=== PATIENT | male | born 1930 | race Caucasian/White ===

== ENCOUNTER 2017-05-09 12:09 | Emergency (ER) | payer OTHER, BC ==
[~2017-05-09] VITALS: Ht 172.7 cm; Wt 89.4 kg
[~2017-05-09 12:09] MED LIST: ASPIR 8181 MG PO; ASPIRIN325 PO; ASTEPRO NASAL SPRAY NASAL; AVODART0.5 MG PO; AZITHROMYCIN 2250 MG PO; CIPRO250 M1 PO; COLACE100 MG PO; DUONEB 2.5-0.5 M3 ML IH; DUONEB 2.5-0.5 M3 ML INH; FLOMAX PO; FLOMAX0.4 MG PO; HYDROCODON-ACE1 EAC7 PO; LIPITOR 20 MG T20 M1 PO; LOPRESSOR25 PO; NITROGLYCERIN0.4 MG SUBLING; NITROSTAT0.4 MG SUBLING; NYSTATIN-TRIAMC15 GM; NYSTATIN1 EA10 MC; PEPCID20 MG PO; PLAVIX 75 MG TA75 M1 PO; PRAVACHOL20 MG PO; PREDNISONE 10 M10 MG PO; PREDNISONE 5 MG5 M1 PO; PROAIR HFA8.5 GM INH; PROTONIX40 M1 PO; SIMVASTATIN40 MG PO; SINGULAIR 10 MG10 M1 PO; SYMBICORT160 MCG/4. INH; TAMSULOSIN HCL0.4 MG PO; TOPROL XL25 MG PO; VITAMIN D2000 UNIT PO
[2017-05-09] MEDS ORDERED: SIMVASTATIN40 MG PO (12:16)
[2017-05-09] MEDS ORDERED: MIDODRINE HCL 55 M1 PO (12:17)
[2017-05-09 13:11] LABS: ABSOLUTE NEUTROPHILS 4.7 thou/uL (1.4-8.2); EOSINOPHILS 7.5 % (0.0-3.0); HEMATOCRIT 34.1 % (42.0-52.0); HEMOGLOBIN 11.6 gm/dL (14.0-18.0); LYMPHOCYTES 13.8 % (24.0-44.0); MCH 31.2 pg (26.0-34.0); MCHC 34.1 g/dL (28.0-37.0); MCV 91.6 fL (80.0-100.0); MONOCYTES 8.3 % (1.0-8.0); PLATELET COUNT 204 thou/uL (150-400); POLYS 69.4 % (36.0-66.0); RBC 3.73 mil/uL (4.50-6.00); RDW 14.4 % (10.5-14.5); WBC 6.7 thou/uL (4.0-11.0)
[2017-05-09 13:18] LABS: CALCIUM 8.9 mg/dL (8.5-10.1); CREATININE 2.2 mg/dL (0.7-1.3); POTASSIUM 4.6 mmol/L (3.5-5.1)
[2017-05-09 13:24] LABS: ALBUMIN 3.2 g/dL (3.4-5.0); TOTAL BILIRUBIN 0.5 mg/dL (<0.1-1.0); TOTAL PROTEIN 6.3 g/dL (6.4-8.2)
[2017-05-09 13:30] VITALS: BP 100/66
[2017-05-09] MEDS ORDERED: ACETAMINOPHEN-1 EAC1 PO (16:10)
[2018-03-05] MEDS ORDERED: IBUPROFEN 200200 M1 PO (13:48)
[2018-03-05] MEDS ORDERED: FOLBIC RF TABL1 EACH PO (13:49)
[2018-03-05] MEDS ORDERED: PREDNISONE 10 M10 MG PO (13:49)
[2018-03-05] MEDS ORDERED: DURAGESIC1 EACH TRANSDERM (14:15)
== END 2017-05-09 16:31 | disposition home or self-care (01) ==
LOC: ER 12:09
PROVIDERS: Physician Assistant
DX: S01.01XA Laceration without foreign body of scalp, initial encounter (principal); S39.011A Strain of muscle, fascia and tendon of abdomen, initial encounter; I10 Essential (primary) hypertension; J44.9 Chronic obstructive pulmonary disease, unspecified; Z90.49 Acquired absence of other specified parts of digestive tract; Z90.89 Acquired absence of other organs; Z87.891 Personal history of nicotine dependence; W18.39XA Other fall on same level, initial encounter; Y93.89 Activity, other specified; Y92.092 Bedroom in other non-institutional residence as the place of occurrence of the external cause; Y99.8 Other external cause status

== ENCOUNTER → 2017-08-21 | Outpatient (CLI) | payer OTHER, BC ==
[~2017-08-21] MED LIST changes: +ACETAMINOPHEN-1 EAC1 PO; +MIDODRINE HCL 55 M1 PO
== END ==
LOC: RAD 12:48
DX: M77.8 Other enthesopathies, not elsewhere classified (principal); I25.10 Atherosclerotic heart disease of native coronary artery without angina pectoris; Z91.81 History of falling

== ENCOUNTER → 2017-09-25 | Outpatient (CLI) | payer OTHER, BC ==
--- NOTE | ~2017-09-25 | 2DMMODE ---
[facility] [address] [place] [address] 2 D/M-MODE ECHOCARDIOGRAM Name: LASHAE GALLAGHER Room #: REG CL [facility]#: [id number] Admission: 09/25/17 Attend Phys: Guillermo Johnson MD Discharge: Date of : [birth year] Date of Service: 09/25/17 1346 Report #: [id number] THIS REPORT FOR: //name// APPROVED REPORT Study performed: 09/25/2017 12:58:55 EXAM: Comprehensive 2D, Doppler, and color-flow Echocardiogram Patient Location: Out-Patient Status: routine BSA: 2.00 HR: 63 bpm BP: 140/74 mmHg Rhythm: NSR Other Information Study Quality: Adequate/low parasternal window Indications CAD 2D Dimensions RVDd: 35.40 mm LVEF(%): 62.18 (>50%) IVSd: 11.26 (7-11mm) LVOT Diam: 22.00 (18-24mm) LVDd: 44.11 mm PWd: 9.51 (7-11mm) LVDs: 29.42 (25-40mm) Aortic Root: 34.75 mm Jules's LVEF: 62.18 % Volumes Left Atrial Volume (Systole) Single Plane 4CH: 32.37 mL Single Plane 2CH: 55.89 mL LA ESV Index: 23.00 mL/m2 Aortic Valve AoV Peak Meir.: 1.39 m/s AO Peak Gr.: 8.95 mmHg LVOT Max P.64 mmHg LVOT Max V: 0.81 m/s MELANY Vmax: 2.21 cm2 Mitral Valve E/A Ratio: 0.6 MV Decel. Time: 314.13 ms [facility] [address] [place] [address] 2 D/M-MODE ECHOCARDIOGRAM Name: LASHAE GALLAGHER Room #: REG [facility]#: [id number] Admission: 09/25/17 Attend Phys: Guillermo Johnson MD Discharge: Date of : [birth year] Date of Service: 09/25/17 1346 Report #: [id number] E Max Meir.: 0.74 m/s MV A Meir.: 1.26 m/s MV PHT: 91.10 ms IVRT: 106.11 ms Pulmonary Valve PV Peak Meir.: 0.90 m/s PV Peak Gr.: 3.22 mmHg Tricuspid Valve TR Peak Meir.: 2.15 m/s RAP Estimate: 5.00 mmHg TR Peak Gr.: 18.47 mmHg PA Pressure: 24.00 mmHg Left Ventricle The left ventricle is normal size. There is normal LV segmental wall motion. There is normal left ventricular wall thickness. Left ventricular systolic function is normal. LVEF is 55%. Mild diastolic dysfunction is present (impaired relaxation pattern). Right Ventricle The right ventricle is normal size. The right ventricular systolic function is normal. Atria The left atrium size is normal. The right atrium size is normal. Aortic Valve Aortic valve is thickened and calcified. No aortic regurgitation is present. There is no aortic valvular stenosis. Mitral Valve Mitral valve leaflets are thickened. Mild mitral annular calcification. Mild mitral regurgitation. No evidence of mitral valve stenosis. Tricuspid Valve The tricuspid valve is normal in structure. Mild tricuspid regurgitation. Estimated PAP is 25mmHg. Pulmonic Valve Pulmonic valve is not well visualized. Mild pulmonic regurgitation. Great Vessels The aortic root is normal in size. Ascending aorta is not well [facility] [address] [place] [address] 2 D/M-MODE ECHOCARDIOGRAM Name: LASHAE GALLAGHER Room #: REG CL [facility].#: [id number] Admission: 09/25/17 Attend Phys: Guillermo Johnson MD Discharge: Date of : [birth year] Date of Service: 09/25/17 1346 Report #: [id number] visualized. IVC is normal in size and collapses >50% with inspiration. Pericardium There is no pericardial effusion. <Conclusion> The left ventricle is normal size. There is normal left ventricular wall thickness. Left ventricular systolic function is normal. Mild diastolic dysfunction is present (impaired relaxation pattern). The right ventricle is normal size. The left atrium size is normal. Aortic valve is thickened and calcified. Mitral valve leaflets are thickened. Mild mitral annular calcification. Mild mitral regurgitation. Mild tricuspid regurgitation. Estimated PAP is 25mmHg. <ELECTRONICALLY SIGNED> By: Guillermo Johnson MD 09/25/17 1346 1346 1346 Guillermo Johnson MD /INF
== END ==
LOC: CV 12:44
DX: I08.1 Rheumatic disorders of both mitral and tricuspid valves (principal); I25.10 Atherosclerotic heart disease of native coronary artery without angina pectoris

== ENCOUNTER 2018-02-22 13:44 | Emergency (ER) | payer OTHER, BC ==
[~2018-02-22] VITALS: Ht 172.7 cm; Wt 90.7 kg
--- NOTE | ~2018-02-22 | EKG ---
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
[2018-02-22 14:59] LABS: ABSOLUTE NEUTROPHILS 5.7 thou/uL (1.4-8.2); BASOPHILS 1.1 % (0.0-2.0); EOSINOPHILS 2.5 % (0.0-3.0); HEMATOCRIT 34.9 % (42.0-52.0); HEMOGLOBIN 11.7 gm/dL (14.0-18.0); LYMPHOCYTES 9.5 % (24.0-44.0); MCH 31.4 pg (26.0-34.0); MCHC 33.4 g/dL (28.0-37.0); MCV 93.9 fL (80.0-100.0); MONOCYTES 7.2 % (1.0-8.0); PLATELET COUNT 182 thou/uL (150-400); POLYS 79.7 % (36.0-66.0); RBC 3.72 mil/uL (4.50-6.00); RDW 13.9 % (10.5-14.5); WBC 7.2 thou/uL (4.0-11.0)
[2018-02-22 15:11] LABS: CALCIUM 8.9 mg/dL (8.5-10.1); CREATININE 2.6 mg/dL (0.7-1.3); POTASSIUM 4.3 mmol/L (3.5-5.1)
[2018-02-22 15:23] LABS: APTT 25.2 Seconds (24.5-32.8); PROTIME 10.7 Seconds (9.3-11.4)
[2018-02-22] MEDS ORDERED: LIDOCAINE PAIN1 EACH TOP (17:20)
[2018-02-22] MEDS ORDERED: NORCO 5-325 TA1 EACH PO (17:20)
== END 2018-02-22 17:34 | disposition home or self-care (01) ==
LOC: ER 13:44
PROVIDERS: Emergency Medicine
DX: S22.41XA Multiple fractures of ribs, right side, initial encounter for closed fracture (principal); I10 Essential (primary) hypertension; J44.9 Chronic obstructive pulmonary disease, unspecified; Z87.891 Personal history of nicotine dependence; Z95.5 Presence of coronary angioplasty implant and graft; Z90.89 Acquired absence of other organs; Z90.49 Acquired absence of other specified parts of digestive tract; W18.39XA Other fall on same level, initial encounter; Y92.89 Other specified places as the place of occurrence of the external cause; Y93.89 Activity, other specified; Y99.8 Other external cause status

== ENCOUNTER 2018-02-25 09:33 | Emergency (ER) | payer OTHER, BC ==
[~2018-02-25] VITALS: Ht 172.7 cm; Wt 90.7 kg
[~2018-02-25 09:33] MED LIST changes: +LIDOCAINE PAIN1 EACH TOP; +NORCO 5-325 TA1 EACH PO
[2018-02-25] MEDS ORDERED: NORCO 5-325 TA1 EACH PO (10:29)
== END 2018-02-25 10:54 | disposition home or self-care (01) ==
LOC: ER 09:33
DX: S22.41XD Multiple fractures of ribs, right side, subsequent encounter for fracture with routine healing (principal); X58.XXXD Exposure to other specified factors, subsequent encounter; Z76.0 Encounter for issue of repeat prescription; I10 Essential (primary) hypertension; J44.9 Chronic obstructive pulmonary disease, unspecified; Z90.49 Acquired absence of other specified parts of digestive tract; Z95.5 Presence of coronary angioplasty implant and graft; Z87.891 Personal history of nicotine dependence

== ENCOUNTER → 2018-03-05 | Outpatient (CLI) | payer OTHER, BC ==
[~2018-03-05] VITALS: Ht 172.7 cm; Wt 90.7 kg
[~2018-03-05] MED LIST changes: +DURAGESIC1 EACH TRANSDERM; +FOLBIC RF TABL1 EACH PO; +IBUPROFEN 200200 M1 PO
--- NOTE | ~2018-03-05 | HPC ---
[facility] [place] [address] PAIN MANAGEMENT CONSULTATION Name: LASHAE GALLAGHER Room #: REG [facility].#: [id number] Admission: 03/05/18 Attend Phys: Tony Salazar MD Discharge: Date of : [birth year] Report #: [id number] THIS REPORT FOR: //name// CC: Tony Lux MD DATE OF SERVICE: 03/05/2018 CHIEF COMPLAINT: Right-sided chest wall pain with fractured ribs. HISTORY OF PRESENT ILLNESS: The patient is a pleasant 87-year-old gentleman I have seen today at the request of Dr. Satish Lux. He fell on 02/20/2018, nearly 2 weeks ago. He was going up some steps and that he fell forward. He missed a step and landed apparently on the side of [facility]. History provided to me by a good friend as well as by the patient. He was seen in the Emergency Room where the rib fractures were identified. Over the course of the last 2 weeks, he has been treated very well by Dr. Lux and they have tried conservative management with lidocaine patch, which provided no benefit. He was initially given nonopioid medication and then was treated with hydrocodone. Hydrocodone has been effective and he has been taking it fairly aggressively. There of course concerns about opioids for age, but he has tolerated it well other than some constipation. He is here today for other options and considerations of treatment. CURRENT MEDICATIONS: Prednisone 10 mg daily, Folbic RF tablet daily, ibuprofen 200 mg every 4 hours, hydrocodone 5/325 up to 6 tablets a day or 30 morphine milligram equivalents, lidocaine patch, midodrine, simvastatin, vitamin D, nystatin, triamcinolone cream, DuoNeb, aspirin, Plavix, ____, tamsulosin, albuterol, Singulair, Symbicort. ALLERGIES: None listed. PAST MEDICAL HISTORY: Coronary artery disease with stent, COPD, chronic kidney disease, grade 4, currently stable. SOCIAL HISTORY: The patient continues to live independently. He does not smoke nor does he give any history of previous drug addictions. He continues to drink 1 glass of wine daily. He has a functional assessment score of 60/70 showing marked involvement of his pain in day-to-day activities. He has completed a risk assessment tool and is at low risk for any addiction at the age of 87. 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 His primary complaint at this time, however, is [place] [address] PAIN MANAGEMENT CONSULTATION Name: LASHAE GALLAGHER [facility] [id number] Admission: 03/05/18 Attend Phys: Tony Salazar MD Discharge: Date of : 04/30/[birth year] Report #: [id number] PHYSICAL EXAMINATION: GENERAL: He is a pleasant 87-year-old. He seems to be fairly sharp, answered most questions clearly, had a little bit of assistance from his friend, Reilly. He gave a reasonable history of his injury. He is able to move from supine to sitting position, but does so in a ground, same thing for standing. He is able to ambulate a bit, but is considered a fall risk obviously. He has some dizziness with initial movements. VITAL SIGNS: His blood pressure is 134/65, heart rate 80, respirations 16, O2 sat 96. His BMI is 30.4. HEENT: Shows some arcus senilis. Pupils are equal and reactive to light. Mucous membranes are moist. NECK: Reduced in range of motion consistent with age. Minimal tenderness there. HEART: His cardiac rhythm was regular. CHEST: His chest expansion and breathing was considered to be reasonable without splinting. Good breath sounds were heard in both the right and the left. He does have increased pain in the right chest wall with deep breath. There is tenderness in the area of confirmed rib fractures in the lower rib cage laterally. ABDOMEN: Soft. IMPRESSION: 1. Rib fractures now roughly 2 weeks from initial injury, stable. Pain score, however, is consistently ranked at 10/10 with current medications. 2. Chronic obstructive pulmonary disease. 3. Chronic kidney disease. 4. Coronary artery disease. RECOMMENDATIONS: We discussed the possibility of some intercostal nerve blocks. This can certainly be performed and on occasion they can provide a long-term benefit, but generally the duration of response is around the duration of the local anesthetic injected. Even with bupivacaine, this might provide relief for only a day or two. We sometimes use this when there is marked splinting and respiratory compromise to improve breathing and respiratory mechanics. He seems to be doing okay from that standpoint. He does have some risks if I performed the injections with COPD disease and pneumothorax would be a serious risk that is about 1 in 50 to 1 in 100 with my hands. Secondly, there is a possibility of some bleeding and bruising due to the proximity of the intercostal artery. Between the patient, his friend, Reilly and myself, we decided against injection therapies. Topical medications have been tried. We have talked about the concerns of using nonsteroidal anti-inflammatory drugs with chronic kidney disease. I would urge him against that at this point. He is already taking 30 morphine milligrams a day of hydrocodone. I have [address] [address] PAIN MANAGEMENT CONSULTATION Name: LASHAE GALLAGHER Room #: REG [facility]#: [id number] Admission: 03/05/18 Attend Phys: Tony Salazar MD Discharge: Date of : 04/30/[birth year] Report #: [id number] suggested that we use a fentanyl patch. I think he will tolerate that well and will provide around the clock pain relief for him and he can supplement a bit with his hydrocodone. I think we can titrate the lowest effective dose. We will manage his constipation carefully. Although opioids are controversial, this is a setting where I feel that they are the best choice in treating his pain that is 10/10. The fentanyl patch will be initiated at the lowest possible dose 12 mcg within 24 hours. It can be increased to 2 patches or roughly 24 mcg. This equates to about a 60 morphine milligram equivalents. The ability to titrate I think is critical at this point. His friend, Reilly was given written instructions as well as the patient. Plan to follow up with him in 1-2 weeks. He was only given 1 box or five patches. We may want to continue this further. Dr. Lux can do so as well. He does not need to get these prescriptions from our office if Dr. Lux wants to continue the prescriptions for him for a short time. I believe this is acute pain and he will be able to go off of opioids for this condition once the ribs have healed and I would urge tapering him back down when able. By: [id number] MD denise Killian
[2018-03-05 13:42] VITALS: BP 134/65
== END ==
LOC: PAIN 08:16
DX: S22.41XD Multiple fractures of ribs, right side, subsequent encounter for fracture with routine healing (principal); J44.9 Chronic obstructive pulmonary disease, unspecified; X58.XXXD Exposure to other specified factors, subsequent encounter

== ENCOUNTER 2018-03-09 14:02 | Emergency (ER) | payer OTHER, BC ==
[~2018-03-09] VITALS: Ht 172.7 cm; Wt 90.7 kg
--- NOTE | ~2018-03-09 | EKG ---
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
[2018-03-09 15:12] LABS: ABSOLUTE NEUTROPHILS 4.7 thou/uL (1.4-8.2); BASOPHILS 1.1 % (0.0-2.0); EOSINOPHILS 3.5 % (0.0-3.0); HEMATOCRIT 38.1 % (42.0-52.0); HEMOGLOBIN 12.6 gm/dL (14.0-18.0); MCH 30.8 pg (26.0-34.0); MCHC 33.1 g/dL (28.0-37.0); MCV 93.2 fL (80.0-100.0); PLATELET COUNT 224 thou/uL (150-400); POLYS 75.4 % (36.0-66.0); RBC 4.09 mil/uL (4.50-6.00); RDW 14.2 % (10.5-14.5); WBC 6.2 thou/uL (4.0-11.0)
[2018-03-09 15:27] LABS: ANION GAP 14 mmol/L (7-16); BUN 32 mg/dL (7-18); CALCIUM 9.7 mg/dL (8.5-10.1); CHLORIDE 106 mmol/L (98-107); CO2 20 mmol/L (21-32); CREATININE 2.1 mg/dL (0.7-1.3); GLUCOSE 87 mg/dL (74-106); POTASSIUM 4.5 mmol/L (3.5-5.1); SODIUM 140 mmol/L (136-145)
[2018-03-09 15:37] LABS: TROPONIN-I <0.06 ng/mL (<0.06)
[2018-03-09 17:19] LABS: URINE BILIRUBIN NEGATIVE (Negative); URINE BLOOD NEGATIVE (Negative); URINE CLARITY CLEAR; URINE COLOR YELLOW; URINE GLUCOSE-RANDOM* NEGATIVE (Negative); URINE KETONES NEGATIVE (Negative); URINE LEUKOCYTES-REFLEX NEGATIVE (Negative); URINE NITRITE-REFLEX NEGATIVE (Negative); URINE PROTEIN (DIPSTICK) NEGATIVE (Negative); URINE SPECIFIC GRAVITY 1.015 (1.005-1.035); URINE UROBILINOGEN 0.2 E.U./dl (0.2-1.0)
[2018-03-09 18:29] VITALS: BP 152/73
== END 2018-03-09 18:36 | disposition home or self-care (01) ==
LOC: ER 14:02
PROVIDERS: Student in an Organized Health Care Education/Training Program
DX: R53.1 Weakness (principal); R07.81 Pleurodynia; J44.9 Chronic obstructive pulmonary disease, unspecified; Z90.49 Acquired absence of other specified parts of digestive tract; Z79.899 Other long term (current) drug therapy; Z87.891 Personal history of nicotine dependence

== ENCOUNTER 2018-07-17 03:52 | Inpatient (IN) | payer OTHER, BC ==
[~2018-07-17] VITALS: Ht 172.7 cm; Wt 90.7 kg
[2018-07-17 03:54] VITALS: BP 110/39
[2018-07-17 04:13] LABS: ABSOLUTE NEUTROPHILS 6.4 thou/uL (1.4-8.2); BASOPHILS 0.7 % (0.0-2.0); EOSINOPHILS 2.7 % (0.0-3.0); HEMOGLOBIN 11.6 gm/dL (14.0-18.0); LYMPHOCYTES 6.6 % (24.0-44.0); MCH 30.1 pg (26.0-34.0); MCHC 33.2 g/dL (28.0-37.0); MCV 90.7 fL (80.0-100.0); MONOCYTES 8.3 % (1.0-8.0); PLATELET COUNT 224 thou/uL (150-400); POLYS 81.7 % (36.0-66.0); RBC 3.86 mil/uL (4.50-6.00); RDW 13.6 % (10.5-14.5); WBC 7.8 thou/uL (4.0-11.0)
[2018-07-17 04:22] LABS: CALCIUM 8.1 mg/dL (8.5-10.1); CREATININE 2.5 mg/dL (0.7-1.3); POTASSIUM 4.3 mmol/L (3.5-5.1)
[2018-07-17 06:28] LABS: URINE BILIRUBIN NEGATIVE (Negative); URINE BLOOD NEGATIVE (Negative); URINE CLARITY CLEAR; URINE COLOR YELLOW; URINE GLUCOSE-RANDOM* NEGATIVE (Negative); URINE KETONES NEGATIVE (Negative); URINE LEUKOCYTES-REFLEX NEGATIVE (Negative); URINE NITRITE-REFLEX NEGATIVE (Negative); URINE PROTEIN (DIPSTICK) NEGATIVE (Negative); URINE SPECIFIC GRAVITY 1.025 (1.005-1.035); URINE UROBILINOGEN 0.2 E.U./dl (0.2-1.0)
[2018-07-17 06:50] VITALS: BP 119/44
--- NOTE | 2018-07-17 07:40 | EKG ---
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[place] : 1930 Requested By: Franky Miller Order Number: [id number] MD: Aneesh Ulloa Measurements Intervals [place] Rate: 81 P: 66 WV: 165 QRS: 53 QRSD: 86 T: 48 QT: 400 QTc: 465 Interpretive Statements Sinus rhythm Occasional premature ventricular complexes Cannot rule out anteroseptal infarct, age indeterminate Compared to ECG 03/09/2018 15:41:37 Ventricular premature complex(es) now present Poor septal R-wave progression is now present Electronically Signed On 07-17-2018 7:40:05 CDT by Aneesh Ulloa [email or web address] ��������������������������������������������� <ELECTRONICALLY SIGNED> ���������������������������������������� By: Aneesh Ulloa MD, [facility] ��������������������������������������������� 07/17/18 0740 0433 0433 Aneesh Ulloa MD, [facility] /EPI
[2018-07-17 09:03] VITALS: BP 149/70
[2018-07-17 09:47] LABS: CALCIUM 8.1 mg/dL (8.5-10.1); CREATININE 2.2 mg/dL (0.7-1.3); POTASSIUM 4.2 mmol/L (3.5-5.1); TOTAL BILIRUBIN 0.4 mg/dL (<0.1-1.0); TOTAL PROTEIN 6.6 g/dL (6.4-8.2)
[2018-07-17 13:52] LABS: FOLIC ACID 17.4 ng/mL (8.6-58.9); TSH 0.721 uIU/mL (0.358-3.740)
[2018-07-17 16:29] VITALS: BP 129/76
[2018-07-17 20:18] VITALS: BP 141/51
[2018-07-18 03:49] VITALS: BP 143/50
[2018-07-18 05:47] LABS: ALBUMIN 2.5 g/dL (3.4-5.0); CALCIUM 7.6 mg/dL (8.5-10.1); CREATININE 2.2 mg/dL (0.7-1.3); POTASSIUM 4.2 mmol/L (3.5-5.1); TOTAL BILIRUBIN 0.2 mg/dL (<0.1-1.0); TOTAL PROTEIN 5.9 g/dL (6.4-8.2)
[2018-07-18 08:33] VITALS: BP 141/55
[2018-07-18 11:15] VITALS: BP 133/84
[2018-07-18 20:21] VITALS: BP 157/71
[2018-07-19 07:28] VITALS: BP 145/64
[2018-07-19 19:53] VITALS: BP 143/69
[2018-07-20 08:02] VITALS: BP 135/57
[2018-07-20 20:51] VITALS: BP 141/68
[2018-07-21 07:27] VITALS: BP 146/73
[2018-07-21 07:37] LABS: HEMATOCRIT 32.6 % (42.0-52.0); HEMOGLOBIN 10.8 gm/dL (14.0-18.0); MCHC 33.3 g/dL (28.0-37.0); MCV 90.2 fL (80.0-100.0); RBC 3.61 mil/uL (4.50-6.00); RDW 13.7 % (10.5-14.5)
[2018-07-21 07:44] LABS: CALCIUM 8.3 mg/dL (8.5-10.1); CREATININE 1.8 mg/dL (0.7-1.3); MAGNESIUM 1.8 mg/dL (1.8-2.4); POTASSIUM 4.3 mmol/L (3.5-5.1)
[2018-07-21 19:21] VITALS: BP 152/62
[2018-07-22 08:44] VITALS: BP 146/82
[2018-07-22 19:39] LABS: HEMATOCRIT 32.1 % (42.0-52.0); MCH 30.7 pg (26.0-34.0); MCHC 34.3 g/dL (28.0-37.0); MCV 89.6 fL (80.0-100.0); RBC 3.58 mil/uL (4.50-6.00); WBC 6.8 thou/uL (4.0-11.0)
[2018-07-22 19:41] VITALS: BP 145/65
[2018-07-22 19:48] LABS: PROTIME 10.8 Seconds (9.3-11.4)
[2018-07-22 19:49] LABS: CALCIUM 8.6 mg/dL (8.5-10.1); POTASSIUM 4.5 mmol/L (3.5-5.1)
[2018-07-23 08:00] VITALS: BP 154/66
--- NOTE | 2018-07-23 09:29 | 2DMMODE ---
[facility] [place] [place] [address] 2 D/M-MODE ECHOCARDIOGRAM Name: LASHAE GALLAGHER Room #: 222-P [facility] IN [facility]#: [id number] ������������� Admission: 07/17/18 ������������� Attend Phys: Satish Lux, Discharge: ��� ������������� ��� Date of : [birth year] Date of Service: 07/23/18 0929 �� Report #: [id number] �������� ��������������������������������������������[id number] THIS REPORT FOR: //name// APPROVED REPORT Study performed: 07/23/2018 08:26:16 EXAM: Comprehensive 2D, Doppler, and color-flow Echocardiogram Patient Location: Echo lab Room #: 222 Status: routine BSA: 2.04 HR: 74 bpm BP: 145/65 mmHg Rhythm: NSR Other Information Study Quality: Adequate/low window Indications Lung mass. CAD. Hx: stents, copd 2D Dimensions RVDd: 35.42 mm IVSd: 10.66 (7-11mm) LVOT Diam: 20.52 (18-24mm) LVDd: 39.84 mm PWd: 9.74 (7-11mm) LVDs: 22.49 (25-40mm) Aortic Root: 33.52 mm Volumes Left Atrial Volume (Systole) Single Plane 4CH: 30.84 mL Single Plane 2CH: 38.87 mL LA ESV Index: 18.00 mL/m2 Aortic Valve AoV Peak Meir.: 1.53 m/s AO Peak Gr.: 9.41 mmHg LVOT Max P.86 mmHg LVOT Max V: 0.98 m/s MELANY Vmax: 2.12 cm2 Mitral Valve E/A Ratio: 0.7 MV Decel. Time: 443.66 ms MV E Max Meir.: 0.95 m/s [facility] [address] [place] [address] 2 D/M-MODE ECHOCARDIOGRAM Name: ELLIOTTLASHAE Wayne Room #: 222-P [facility]#: [id number] ������������� Admission: 07/17/18 ������������� Attend Phys: Satish Lux, Discharge: ��� ������������� ��� Date of : [birth year] Date of Service: 07/23/18 0929 �� Report #: [id number] �������� ��������������������������������������������[id number] MV A Meir.: 1.44 m/s MV PHT: 128.66 ms IVRT: 96.89 ms Pulmonary Valve PV Peak Meir.: 0.87 m/s PV Peak Gr.: 3.03 mmHg Tricuspid Valve TR Peak Meir.: 2.35 m/s RAP Estimate: 10.00 mmHg TR Peak Gr.: 22.16 mmHg PA Pressure: 32.00 mmHg Left Ventricle The left ventricle is normal size. There is normal LV segmental wall motion. There is normal left ventricular wall thickness. Left ventricular systolic function is normal. LVEF is 60-65%. Mild diastolic dysfunction is present (impaired relaxation pattern). Right Ventricle The right ventricle is normal size. The right ventricular systolic function is normal. Atria The left atrium size is normal. The right atrium size is normal. Aortic Valve Aortic valve is thickened and calcified. No aortic regurgitation is present. There is no aortic valvular stenosis. Mitral Valve Moderate mitral annular calcification. Trace mitral regurgitation. Tricuspid Valve The tricuspid valve is normal in structure. Trace to mild tricuspid regurgitation. Estimated PAP is 30 mmHg. Pulmonic Valve Pulmonic valve is not well visualized. Mild pulmonic regurgitation. Great Vessels The aortic root is normal in size. Ascending aorta is not well visualized. IVC is dilated and collapses <50% with [facility] [address] [place] [address] 2 D/M-MODE ECHOCARDIOGRAM Name: LASHAE GALLAGHER Room #: 222-P [facility].#: [id number] ������������� Admission: 07/17/18 ������������� Attend Phys: Satish Lux, Discharge: ��� ������������� ��� Date of : [birth year] Date of Service: 07/23/18 0929 �� Report #: [id number] �������� ��������������������������������������������[id number] inspiration. Pericardium There is no pericardial effusion. <Conclusion> Left ventricular systolic function is normal. There is normal LV segmental wall motion. LVEF is 60-65%. Mild diastolic dysfunction Aortic valve is thickened and calcified. No aortic regurgitation or stenosis Moderate mitral annular calcification. Trace mitral regurgitation. Trace to mild tricuspid regurgitation. Estimated pulmonary artery pressure of 30 mmHg. There is no pericardial effusion. ��������������������������������������������� <ELECTRONICALLY SIGNED> ���������������������������������������� By: Aneesh Ulloa MD, [facility] ��������������������������������������������� 07/23/18928 8 8 Aneesh Ulloa MD, [facility] /INF
[2018-07-23 20:06] LABS: PSA 3.7 ng/mL (0.0-4.0)
[2018-07-23 21:10] VITALS: BP 142/73
[2018-07-23 21:21] VITALS: BP 142/73
[2018-07-24 07:27] VITALS: BP 139/63
--- NOTE | 2018-07-24 11:43 | HC ---
[facility] [place] [address] CONSULTATION Name: ELLIOTTLASHAE Room #: 222-P [facility] IN ..#: [id number] Admission: 07/17/18 ������������������ Attend Phys: Satish Lux MD Discharge: ������������������ Date of : [birth year] Report #: [id number] THIS REPORT FOR: //name// CC: Satish Lux DATE OF SERVICE: 07/23/2018 INFECTIOUS DISEASE CONSULTATION ATTENDING PHYSICIAN: Dr. Lux. REASON FOR CONSULTATION: Right lung lesion. HISTORY OF PRESENT ILLNESS: An 88-year-old white man admitted through the Emergency Room after having suffered a fall and diagnosed to have profound weakness, chronic kidney disease found to have abnormal chest x-ray and a normal CT scan of the chest with possible right-sided pneumonia versus malignancy, and ID and pulmonary opinion requested. The patient at present is feeling better, just feeling cold and wanted the door closed. He has no major complaints and some occasional shortness of breath with physical exertion, but no expectoration and much less hemoptysis. PAST MEDICAL HISTORY: Chronic orthostatic hypotension. COPD, on Symbicort per Dr. John Portillo. Obstructive sleep apnea. Coronary artery disease, requiring stenting. Previous appendectomy and tonsillectomy. Degenerative arthritis. Peripheral neuropathy. Dyslipidemia. Chronic kidney disease. There is a history of prostate cancer per old medical records, but the patient does not bring to my attention. Had laparoscopic hemicolectomy for cecal polyp by Dr. Alecia Morales, he does not have recollection of these events either. DRUG ALLERGIES: None listed. MEDICATIONS: He is on montelukast sodium 10 mg at bedtime, atorvastatin 20 mg at bedtime, tamsulosin 0.4 mg at bedtime, budesonide 0.25 mg inhalation b.i.d., inhalation treatment with Atrovent and albuterol, cholecalciferol 2000 units daily, aspirin 81 mg daily. SOCIAL HISTORY: . No children, lives with a cat, name [place], I believe. REVIEW OF SYSTEMS: See H and P and as above. PHYSICAL EXAMINATION: GENERAL: A well-developed, chronically ill-appearing man, afebrile since admission. VITAL SIGNS: Temperature 98, pulse 60, respirations 20, BP 145/65. Height is [address] [address] CONSULTATION Name: LASHAE GALLAGHER Room #: 222-P [facility] IN [facility].#: [id number] Admission: 07/17/18 ������������������ Attend Phys: Satish Lux MD Discharge: ������������������ Date of : [birth year] Report #: [id number] feet 8 inches, weight 200 pounds. 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 He tells me he has lost significant eyesight after surgical intervention to the right eye. Mouth: No thrush. NECK: Supple. LUNGS: Few crackles, right lung posteriorly. HEART: S1, S2. No gallop or murmur. ABDOMEN: Soft, no masses or megaly. GENITALIA: Deferred. RECTAL: Deferred. EXTREMITIES: No clubbing or cyanosis. LABORATORY DATA: Sodium 139, potassium 4.5, CO2 of 27, BUN 31, creatinine 2, glucose 134. The C-reactive protein only mildly elevated at 34.1. WBC 6800, hemoglobin 11 g/dL, platelets 219,000. ESR mildly elevated between 40 and 49 mm per hour. MICROBIOLOGY DATA: Blood cultures were obtained, they remain negative at the time of this dictation. RADIOLOGY EVALUATION: Chest x-ray portable revealed minimal atelectasis. No acute pneumonia, that is on 07/17/2018. On 07/21/2018, there is said to be right mid lung mass similar to previous studies. CT scan of the chest, high resolution revealed superior segmental right lower lung mass concerning for malignancy, less likely to be pneumonia, atelectasis, right upper lobe anteriorly representing atelectasis. ASSESSMENT: 1. 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 2. Chronic kidney disease. 3. History of obstructive sleep apnea. 4. Chronic obstructive pulmonary disease. 5. Appendectomy. 6. Segmental colon resection for colonic polyp. SUGGESTIONS: Recommend proceed with pulmonary evaluation and possibly bronchoscopy to ascertain diagnosis of malignancy. Further recommendations pending those results. Dr. Lux, thank you for requesting my suggestions. ��������������������������������������������� <ELECTRONICALLY SIGNED> ���������������������������������������� By: Manolo Theodore MD ��������������������������������������������� 07/24/18 1143 1051 2158 Manolo Theodore MD /nt
[2018-07-24 19:00] VITALS: BP 117/54
[2018-07-24 20:23] VITALS: BP 139/63
[2018-07-25 07:20] VITALS: BP 137/55
[2018-07-25 08:11] LABS: CEA 4.3 ng/mL (0.0-4.7)
[2018-07-25 18:54] VITALS: BP 140/67
[2018-07-26 10:30] VITALS: BP 130/64
[2018-07-26 19:50] VITALS: BP 155/74
[2018-07-27 07:30] VITALS: BP 118/47
--- NOTE | 2018-07-27 16:06 | PATH ---
[facility] [address] [place] [address] PATHOLOGY RPT PROCEDURE Name: LASHAE GALLAGHER Room #: 222-P ADM IN .R.#: [id number] ������������������ Admission: 07/17/18 ������������������ Date of : [birth year] Discharge: Report #: [id number] Path Case #: [id number] Note [facility] Accession Number: [id number] TESTS RESULT FLAG UNITS REF RANGE LAB Clinician Provided Cytology Information No. of containers..01 Other (Miscellaneous) Source: RLL BRUSHING DIAGNOSIS: 02 RLL BRUSHING NEGATIVE FOR MALIGNANT CELLS. NORMAL BRONCHIAL CELLS AND MACROPHAGES ARE PRESENT. RED BLOOD CELLS ARE PRESENT. Pathologist ICD10: 02 R91.8 Signed out by: 02 Darcy Scott MD, Pathologist NPI- [id number] Performed by: 01 Ema Donovan Product Owner ([facility]) FLAG LEGEND: L-Low Normal,H-High Normal,LL-Alert Low,HH-Alert High <-Panic Low,>-Panic High,A-Abnormal,AA-Critical Abnormal Performed at: [address] [place] [address] Pedro Xavier MD, [address] [address] Darcy Scott MD, Specimen Comment: A courtesy copy of this report has been sent to Specimen Comment: [phone], . Specimen Comment: Report sent to / DR ELLIS Performed at: [address], [place], [place] [id number] MD Pedro Xavier MD Phone: [phone]
--- NOTE | 2018-07-27 16:06 | PATH ---
[facility] [address] [place] [address] PATHOLOGY RPT PROCEDURE Name: LASHAE GALLAGHER Room #: 222-P ADM IN .R.#: [id number] ������������������ Admission: 07/17/18 ������������������ Date of : [birth year]/30[birth year] Discharge: Report #: [id number] Path Case #: [id number] Note [facility] Accession Number: [id number] TESTS RESULT FLAG UNITS REF RANGE LAB Clinician Provided Cytology Information No. of containers..01 Other (Miscellaneous) Source: RLL BRUSH TIP DIAGNOSIS: RLL BRUSH TIP NEGATIVE FOR MALIGNANT CELLS. NORMAL BRONCHIAL CELLS AND MACROPHAGES ARE PRESENT. RED BLOOD CELLS ARE PRESENT. Pathologist ICD10: 02 R91.8 Signed out by: 02 Darcy Scott MD, Pathologist NPI- [id number] Performed by: Ema Donovan, Desktop Publishing Associate ([facility]) Gross description: 01 25ML, COLORLESS, CLEAR /LCS FLAG LEGEND: L-Low Normal,H-High Normal,LL-Alert Low,HH-Alert High <-Panic Low,>-Panic High,A-Abnormal,AA-Critical Abnormal Performed at: [address] [place] [address] Pedro Xavier MD, [address] [place] [id number] Darcy Scott MD, Specimen Comment: A courtesy copy of this report has been sent to Specimen Comment: [phone], . Specimen Comment: Report sent to / DR ELLIS Performed at: [address], [place], [place] [id number] MD Pedro Xavier MD Phone: [phone]
[2018-07-27 18:31] VITALS: BP 120/48
[2018-07-28 08:39] VITALS: BP 136/68
[2018-07-28 10:58] LABS: HEMATOCRIT 30.5 % (42.0-52.0); HEMOGLOBIN 10.2 gm/dL (14.0-18.0); MCH 30.4 pg (26.0-34.0); MCHC 33.5 g/dL (28.0-37.0); MCV 90.5 fL (80.0-100.0); RBC 3.37 mil/uL (4.50-6.00); WBC 7.8 thou/uL (4.0-11.0)
[2018-07-28 11:14] LABS: CALCIUM 8.5 mg/dL (8.5-10.1); CREATININE 2.5 mg/dL (0.7-1.3); POTASSIUM 4.5 mmol/L (3.5-5.1)
[2018-07-28 20:11] VITALS: BP 150/72
[2018-07-29 07:35] VITALS: BP 158/74
[2018-07-29 09:03] LABS: CALCIUM 8.4 mg/dL (8.5-10.1); CREATININE 2.1 mg/dL (0.7-1.3); POTASSIUM 4.5 mmol/L (3.5-5.1)
[2018-07-29 20:57] VITALS: BP 125/66
[2018-07-30 07:50] VITALS: BP 136/61
[2018-07-30 09:03] VITALS: BP 136/61
[2018-07-30 20:56] VITALS: BP 134/65
[2018-07-31 07:15] VITALS: BP 151/63
--- NOTE | 2018-07-31 10:07 | PATH ---
[facility] [address] PATHOLOGY RPT PROCEDURE Name: LAWRENCE GALLAGHER Wayne Room #: 222-P ADM IN M.R.#: [id number] ������������������ Admission: 07/17/18 ������������������ Date of : [birth year]/30/29 Discharge: Report #: [id number] Path Case #: [id number] LCA Accession Number: [id number] . 01 Material submitted: . RLL NEEDLE BIOPSY-BRONCH . 01 Clinical history: . Fall and weakness . 02 Diagnosis: Lung, right lower lobe, needle biopsy: - Detached strips of benign reactive bronchial epithelial cells. - Fragments of submucosal glands as well as cartilage showing reactive changes. - Specimen predominantly (80%) comprised of blood. - Negative for dysplasia or malignancy. LBQ/07/27/2018 . 02 Comment: The cytology specimen submitted showed no malignant cells as well. Please refer to [id number] and [id number] reports resulted separately. (IUV/db; 07/27/2018) . 02 Electronically signed: . Darcy Scott MD, Pathologist NPI- [id number] . 01 Gross description: . The specimen is received in formalin, labeled "Lawrence Gallagher, needle biopsy RLL" and consists of multiple delicate fragments/needle cores of sevilla-brown tissue measuring 1.5 x 0.4 x 0.1 cm which are entirely submitted in A1. (SDY; 07/26/2018) SYU/SYU . 02 Pathologist provided ICD-10: J98.4 . 02 CPT . 322774 Specimen Comment: A courtesy copy of this report has been sent to Specimen Comment: [phone], . Specimen Comment: Report sent to / DR ELLIS Specimen Comment: A duplicate report has been generated due to demographic updates. Performed at: [address] [address] PATHOLOGY RPT PROCEDURE Name: LAWRENCE GALLAGHER Room #: 222-P ADM IN M.R.#: [id number] ������������������ Admission: 07/17/18 ������������������ Date of : [birth year]/30/[birth year] Discharge: Report #: [id number] Path Case #: [id number] [address], [place] [id number] MD Pedro Xavier MD Phone: [phone] Performed at: [address] [id number] MD Darcy Scott MD Phone: [phone]
[2018-07-31 20:16] VITALS: BP 151/63
[2018-07-31 20:28] VITALS: BP 153/68
[2018-08-01] VITALS (7 sets, daily range): BP systolic 123–159; BP diastolic 55–89
--- NOTE | 2018-08-01 18:31 | HC ---
[facility] [address] CONSULTATION Name: ELLIOTTLASHAE Room #: 222-P [facility] IN ..#: [id number] Admission: 07/17/18 ������������������ Attend Phys: Satish Lux MD Discharge: ������������������ Date of : [birth year]/30/[birth year] Report #: [id number] THIS REPORT FOR: //name// CC: Satish Lux DATE OF SERVICE: 07/23/2018 REFERRING PHYSICIAN: Dr. Lux. REASON FOR REFERRAL: Lung nodule, question lung mass. HISTORY OF PRESENT ILLNESS: The patient is an 88-year-old white male who was brought to the Emergency Room following a fall on 07/17/2018. Since admission, the patient had a CT chest showing a lung mass. For that reason, a pulmonary consultation was requested. The patient was felt to be weak. He subsequently fell at home and could not get up. 911 was called. He was subsequently brought to the Emergency Room. He was also found to be dehydrated. Chest x-ray on admission showed a questionable left upper lobe density. CT chest confirms the lung mass. This measures 5 x 2.3 cm in diameter in the superior basal segment of the right upper lobe abutting the pleura. A small nodule was also seen in the right upper lobe. Otherwise, the patient denies any recent chest pain, productive cough, night sweats or chills. Denies any recent weight loss. He notes that he has been gradually getting weaker and getting around with a walker. PAST MEDICAL HISTORY: Notable for coronary artery disease, undergone stent placement in the past, previous echocardiogram showed ejection fraction approximately 60%, past history of GI bleed due to antiplatelet therapy, status post cauterization, long history of debility with visual impairment, chronic kidney disease stage IV, COPD, past history of right hemicolectomy for tubulovillous adenoma in 2011, carotid artery disease, dyslipidemia, degenerative joint disease, prostate cancer, undergoing radiation and history of sleep apnea. ALLERGIES: None. CURRENT MEDICATIONS: From home: Symbicort, ProAir, Singulair, Flomax, Lipitor, aspirin, DuoNebs, Zocor, midodrine, Advil and prednisone 10 mg once a day. FAMILY HISTORY: Notable for CVA in the father, . SOCIAL HISTORY: Single, has no children. He has a caregiver. The patient has smoked in the past, but quit many years ago. [address] [address] CONSULTATION Name: LASHAE GALLAGHER Room #: 222-P [facility] IN .R.#: [id number] Admission: 07/17/18 ������������������ Attend Phys: Satish Lux MD Discharge: ������������������ Date of : [birth year]/30/[birth year] Report #: [id number] REVIEW OF SYSTEMS: As mentioned above. It is notable for progressive weakness, getting around with a walker. Otherwise, 10-point system review negative. PHYSICAL EXAMINATION: GENERAL: He is awake, alert, in no distress. VITAL SIGNS: Temperature is 98.6 degrees Fahrenheit, pulse is 75, respiratory rate is 20, blood pressure 154/66 mmHg and saturation 99%. HEENT: Normocephalic and atraumatic. NECK: Supple without lymphadenopathy or thyromegaly. CHEST: Breath sounds are good with fair breaths movement due to poor effort, otherwise no obvious rales or wheezes. CARDIOVASCULAR: Normal S1 and S2. No murmurs or gallop. There is no JVD. There is no carotid bruit. Pulses are 2+/4+ bilaterally. ABDOMEN: Soft and nontender. No organomegaly or masses felt. GENITOURINARY: Deferred. RECTAL: Deferred. EXTREMITIES: There is no edema, cyanosis or clubbing. LABORATORY AND DIAGNOSTIC DATA: Chest x-ray and chest CT reviewed showing a rectangular shaped lung mass involving the superior basal segment of the right lower lobe abutting the pleura. PSA is 3.7. C-reactive protein is 34. Echocardiogram showed ejection fraction is normal. LV function is normal. Mild mitral regurgitation. Pulmonary pressure measuring 30. Mild diastolic dysfunction. Sodium 139, potassium 3.5, chloride 105, CO2 of 27, BUN is 31 and creatinine is 2.0. Liver enzymes are grossly unremarkable. WBC 6800, hemoglobin is 11.0 and platelets are normal. Albumin 2.5. IMPRESSION: Right lower lobe lung mass in this 88-year-old white male. He has been admitted for recent fall. No recent weight loss. The patient has smoked in the past. Etiology is unclear, but likely represents bronchogenic carcinoma. Rectangular shape of the lung mass might represent inflammatory process. 1. Weakness with a recent fall. 2. Chronic obstructive pulmonary disease, severity unknown 3. History of tobacco use. 4. Chronic kidney disease. RECOMMENDATION AND DISCUSSION: Agree that proceeding with diagnostic workup will be needed. Bronchoscopy is an option along with possible CT needle biopsy. We discussed with Dr. Gomez. Plan for diagnostic bronchoscopy in the next day or so. [address] [place] [address] CONSULTATION Name: LASHAE GALLAGHER Room #: 222-P ADM IN M.R.#: [id number] Admission: 07/17/18 ������������������ Attend Phys: Satish Lux MD Discharge: ������������������ Date of : 04/30/29 Report #: [id number] Thank you for this consultation. ��������������������������������������������� <ELECTRONICALLY SIGNED> ���������������������������������������� By: Quintin Monroe MD ��������������������������������������������� 08/01/18 1831 2028 0429 Quintin Monroe MD /nt
[2018-08-02 08:15] VITALS: BP 101/54
[2018-08-02 08:31] LABS: HEMATOCRIT 31.7 % (42.0-52.0); HEMOGLOBIN 10.4 gm/dL (14.0-18.0); MCH 29.7 pg (26.0-34.0); MCHC 32.7 g/dL (28.0-37.0); MCV 90.9 fL (80.0-100.0); RBC 3.49 mil/uL (4.50-6.00); RDW 13.6 % (10.5-14.5); WBC 8.6 thou/uL (4.0-11.0)
[2018-08-02 08:40] LABS: CALCIUM 8.8 mg/dL (8.5-10.1); CREATININE 2.3 mg/dL (0.7-1.3); POTASSIUM 4.7 mmol/L (3.5-5.1)
--- NOTE | 2018-08-02 15:06 | PATH ---
[facility] [address] [address] PATHOLOGY RPT PROCEDURE Name: LASHAE GALLAGHER Room #: 222-P ADM IN M.R.#: [id number] ������������������ Admission: 07/17/18 ������������������ Date of : [birth year]/30/[birth year] Discharge: Report #: [id number] Path Case #: [id number] [facility] Accession Number: [id number] . 01 Material submitted: . PART A: R LUNG BX PART B: R LUNG BX . 01 Clinical history: . Fall and weakness . 02 Diagnosis: A. 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 - Background lung parenchyma showing mild chronic interstitial inflammation and calcifications. . B. 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 . (IUV:jeanne; 08/02/2018) MBLaina/08/02/2018 . 02 Comment: Co-review: Dr. Shameka Wiley. . Findings of this case are telephoned to Miss Deshpande, in Dr. Satish Ellis's office at 10 a.m. on 08/02/18. . (IUV:digital media strategist; 08/02/2018) . 02 Electronically signed: . Darcy Scott MD, Pathologist NPI- [id number] . 01 Gross description: . A. The specimen is received in formalin, labeled "Lashae Gallagher, CT-guided right lung BX", are 3 sevilla needle cores measuring 0.7 cm, 1.2 cm and 1.4 cm in length with an average 0.1 cm diameter. The specimen is entirely submitted in A1-A3. . B. The specimen is received in saline, labeled "Lashae Gallagher, CT-guided right lung BX", consist of a sevilla needle core fragment measuring 0.3 cm in length with an average 0.1 cm diameter. The specimen is entirely submitted in B1. ([facility]; 08/01/2018) [facility]/[address] [address] PATHOLOGY RPT PROCEDURE Name: LASHAE GALLAGHER Room #: 222-P [facility] IN M.R.#: [id number] ������������������ Admission: 07/17/18 ������������������ Date of : [birth year]/30/[birth year] Discharge: Report #: [id number] Path Case #: [id number] . 02 Pathologist provided ICD-10: C34.91, J94.8, J98.4 . 02 CPT . 204118, 256771 Specimen Comment: A courtesy copy of this report has been sent to Specimen Comment: [phone], . Specimen Comment: Report sent to / DR ELLIS Performed at: [address], [place] [id number] MD Pedro Xavier MD Phone: [phone] Performed at: [address] [id number] MD Darcy Scott MD Phone: [phone]
[2018-08-02 18:34] VITALS: BP 135/60
[2018-08-03 08:00] VITALS: BP 143/71
[2018-08-03] MEDS ORDERED: ASPIR 8181 MG PO (15:58)
--- NOTE | 2018-08-04 12:27 | HC ---
[facility] [place] [address] CONSULTATION Name: LASHAE GALLAGHER Room #: 222-P [facility] IN .R.#: [id number] Admission: 07/17/18 ������������������ Attend Phys: Satish Lux MD Discharge: 08/03/18 ������������������ Date of : [birth year]/30/[birth year] Report #: [id number] THIS REPORT FOR: //name// CC: Manolo River MD HISTORY OF PRESENT ILLNESS: The patient is an 88-year-old gentleman from the [place] area. He fell at home and on surgical evaluation was found to have a right-sided possible pneumonia and a right lower lobe mass. This measures 5 x 2.3. There is no definite lymph node involvement. PAST MEDICAL HISTORY: Notable for COPD; orthostatic hypotension; peripheral neuropathy; coronary artery disease with a stent in the past and a STEMI in February 2014, had a drug-eluting stent; degenerative arthritis; chronic kidney disease; history of a GI bleed; history of prostate cancer, had radiation therapy in the past and takes occasional Lupron with Dr. Austin River and also had a laparoscopic hemicolectomy for a large polyp in the past. CURRENT MEDICATIONS: Include ipratropium, albuterol, montelukast 10, atorvastatin 20, tamsulosin 0.4, budesonide 0.25 b.i.d., ipratropium and cholecalciferol. RADIOLOGICAL DATA: Imaging here included the CT chest that showed a 5 x 2.3 cm mass extending near the right hilum to the pleura with some stranding speculation and nodularity. No definite hilar adenopathy. No significant size mediastinal lymph nodes. There was a large lymph node, subcarinal measuring 2.4 cm, severe coronary calcification. PHYSICAL EXAMINATION: VITAL SIGNS: The patient appears his stated age, is an elderly gentleman with a quilted top on and final pants and socks. Has a cat named orange at home. MOOD: He is pleasant. NEUROLOGICAL: Moving all extremities. LUNGS: Mostly clear with some slight decrease in the right into the bases. HEART: Regular rate. ABDOMEN: Soft and slightly obese. EXTREMITIES: Without clubbing or cyanosis. LABORATORY DATA: He has a hemoglobin 10.4 and white count 8.6. Labs notable for creatinine of 2.3. ASSESSMENT AND PLAN: 1. Wan-xxitn-wdrf lung cancer may be localized, we will arrange for MRI head and then hopefully ahead as an outpatient and if it is localized, [place] [address] CONSULTATION Name: LASHAE GALLAGHER Room #: 222-P [facility] IN ..#: [id number] Admission: 07/17/18 ������������������ Attend Phys: Satish Lux MD Discharge: 08/03/18 ������������������ Date of : [birth year]/30/[birth year] Report #: [id number] sterotactic radiation and if is advanced, may consider palliative care. 2. Weakness. Plans for rehabilitation. 3. History of chronic kidney disease, careful medications. 4. Benign prostatic hypertrophy and prostate cancer. Defer to Dr. River. Continue tamsulosin and Lupron as needed. 5. Hyperlipidemia, on statin. We will follow with you. ��������������������������������������������� <ELECTRONICALLY SIGNED> ���������������������������������������� By: Tony Khoury MD ��������������������������������������������� 08/04/18 1227 0826 0054 Tony Khoury MD /nt
--- NOTE | 2018-08-05 10:16 | H ---
[facility] [place] [address] HISTORY AND PHYSICAL Name: LASHAE GALLAGHER Room #: 222-P [facility] IN ..#: [id number] Admission: 07/17/18 ������������������ Attend Phys: Satish Lux MD Discharge: 08/03/18 ������������������ Date of : [birth year]/30/[birth year] Report #: [id number] THIS REPORT FOR: //name// CC: Satish Lux DATE OF SERVICE: 07/17/2018 CHIEF COMPLAINT: He was too weak to stand up. HISTORY OF PRESENT ILLNESS: The patient fell at home and took 15 minutes to crawl across his house to the side of his bed where he was able to pull himself up. He had been heading to the bathroom when he first fell and once he was standing upright holding on to his bed, he turned and headed towards the bathroom again. He one step before he collapsed with his legs not being able to support him. He has a "life alert" emergency button that he wears on a chain around his neck. He pressed the button and summoned the paramedics who brought him to [facility] Emergency Room. In the Emergency Room, his initial evaluation was remarkable for his being volume depleted with an elevated creatinine, findings of dehydration on physical examination and his not being able to walk. For these reasons, he is admitted. PAST MEDICAL HISTORY: Over the last 10 years or so, he has had several episodes of orthostatic hypotension, syncope and near syncope. Several years ago, he was started on midodrine 250 mg 3 times daily and then more recently he was told by his j2ee architect to put a little bit of salt on his food and use that to help him retain vascular volume and reduce his orthostatic hypotension. 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 He often uses a walker at home and when he is out and about. He has COPD. He stopped smoking in the distant past. He is followed for pulmonary medicine by Dr. John Portillo. On his last visit there on 01/25/2018, he was told to continue taking Incruse inhaler along with symbicort twice a day, and needs to use Ventolin only rarely now. He was told that he did not need to use nebulizer or other bronchodilators. He uses his CPAP every night. Dr. Portillo has diagnosed him with asthma as well as COPD and obstructive sleep apnea. He has coronary artery disease and had a stent placed when he came to the hospital with an STEMI in 02/2014. It was a drug-eluting stent. He has bilateral intermediate grade carotid artery disease. He has trace edema chronically, degenerative arthritis that is widespread. Gait instability from his peripheral neuropathy and he uses a walker at home. History of GI bleed. Hyperlipidemia. Chronic kidney disease, stage 4. A nuclear study on 08/31/2015 showed a low probability for inducible ischemia. [address] [address] HISTORY AND PHYSICAL Name: LASHAE GALLAGHER Room #: 222-P [facility] IN ..#: [id number] Admission: 07/17/18 ������������������ Attend Phys: Satish Lux MD Discharge: 08/03/18 ������������������ Date of : [birth year]/30/[birth year] Report #: [id number] He has had an appendectomy and a cholecystectomy. He has prostate cancer and takes an occasional Lupron injection from Dr. Austin River. On 08/30/2011, he underwent a laparoscopic ascending hemicolectomy by Dr. Alecia Morales at [facility] for a large cecal polyp with an ileal transverse bgmf-ej-xosb functional end-to-end anastomosis. 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 Three tubular adenomas were also removed, two in the cecum and one in the small bowel. Thirty two reactive lymph nodes showed no evidence of malignancy. At the time of dictation, it is not known if he has had colonoscopies since that time other than a colonoscopy on 02/20/2014. The colonoscopy was done because of anemia. The prep was somewhat limited, but no polys or growths were seen. 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 Daily PPI therapy was recommended. He has chronic kidney disease, stage 4; type 2 diabetes on diet control and prostate cancer treated with intermittent Lupron injections. CURRENT MEDICATIONS: He has an albuterol inhaler, the older style of Ventolin that is not an HFA that he gets from [employer] because it is more effective. He is supposed to be using an Incruse inhaler. He uses Symbicort 2 puffs twice daily. He may be taking both clopidogrel for his cardiac stent and a baby aspirin 81 mg daily, but clopidogrel is not on his Emergency Room medication sheet. Montelukast 10 mg daily. Tamsulosin one at bedtime. Atorvastatin 20 mg at bedtime. Vitamin D3, ibuprofen, prednisone 10 mg daily as needed when his breathing is bothersome. Midodrine 2.5 mg tablets were prescribed three years ago, he is currently taking one in the morning if his feet are numb when he wakes up. He says that the next morning if his feet are not numb when he wakes up then he does not need to take any more. If his feet are numb when he wakes up, then he will take another one. His bottle of 250 tablets dated several years ago was still almost half full. SOCIAL HISTORY: He lives alone with his cat in his own home. He drinks wine. He does not use recreational drugs. He used to smoke. ALLERGIES: None known. OBJECTIVE: GENERAL: Exam shows an elderly male appearing younger other than his stated age of 88. [facility] [address] [place] [address] HISTORY AND PHYSICAL Name: LASHAE GALLAGHER Room #: 222-P [facility] IN [facility]#: [id number] Admission: 07/17/18 ������������������ Attend Phys: Satish Lux MD Discharge: 08/03/18 ������������������ Date of : [birth year]/30/[birth year] Report #: [id number] HEENT: Oropharynx is dry. LUNGS: Clear. CARDIOVASCULAR: His heart tones are normal. ABDOMEN: Soft and nontender. EXTREMITIES: He does not have pedal edema. NEUROLOGIC: Present screening neurological exam is grossly normal, although he was not ambulated at the time of my examination. LABORATORY DATA: His creatinine is elevated compared to the baseline. ASSESSMENT: 1. Febrile illness. His temperature was 100.[address] his way to the hospital. 2. Cough and chronic obstructive pulmonary disease, chest x-ray does not show pneumonia or lesions. 3. Weakness and he is unable to stand. 3. Low blood pressure. 4. Other medical problems as in the history and physical above. 5. Volume depleted/dehydrated. PLAN: He is admitted for intravenous fluids and telemetry monitoring. His electrolytes are being checked regularly and replaced as needed. He is being given physical therapy and occupational therapy. ��������������������������������������������� <ELECTRONICALLY SIGNED> ���������������������������������������� By: Satish Lux MD ��������������������������������������������� 08/05/18 1016 0009 0119 Satish Lux MD /nt
--- NOTE | 2018-08-06 07:08 | D ---
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 He then attempted to head towards the bathroom again when he fell a second time. He called his Life Alert emergency button, they summoned the paramedics, which took him to [facility] for further evaluation. In the Emergency Room, he was found to be dehydrated with an elevated creatinine. He was weak and not able to walk. For these reasons, he was admitted. SUMMARY OF HOSPITAL COURSE: He was treated with intravenous fluids and regained his strength over the next 3 days. His laboratory parameter showing dehydration, resolved and his chronic kidney stage 3-4 returned to its baseline values. His cough that he had on admission improved. A followup PA and lateral chest x-ray in the department prior to being discharged, compared with the normal admission film, which was a PA single view from the Emergency Room Department, noticed the presence of a right lower lobe mass/infiltrate. Bronchoscopy was performed initially and was negative. 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 The CT scan suggests that there are pleural nodules but because of his low kidney function, contrast was not used. There was no clear hilar or mediastinal extension of the tumor. Bronchoscopy cultures were negative and biopsies negative. He was seen in consultation by Tony Khoury of Medical Oncology prior to discharge. Dr. Khoury noted that if he did not have metastatic disease, a stereotactic radiation therapy treatment could produce survival characteristics of similar to an open resection. He has been receiving physical therapy while the evaluation took place, and has progressed tremendously in recovery of his strength. He reported that physical therapist found that he had weak hip muscles and that his leg muscles were good and strong. It was felt at the time of discharge that a short course of a nursing home rehabilitation strengthening would benefit him so that he could return to his own home and then proceed with evaluation for his cancer. Dr. Khoury is to arrange outpatient Radiation Oncology evaluation and an outpatient PET scan at the [facility], expecting a PET scan to be approximately Monday, August the . This plan was discussed by Dr. Khoury [address] [address] DISCHARGE SUMMARY Name: KATARZYNAKEKELASAHE Room #: 222-P [facility] IN M.R.#: [id number] Admission: 07/17/18 ������������������ Attend Phys: Satish Lux MD Discharge: 08/03/18 ������������������ Date of : [birth year] Report #: [id number] with the patient and his friend/caregiver, Reilly Figueroa. LABORATORY SUMMARY: Admitting creatinine was 2.5 compared to baseline of 2.1. With IV fluids, it reached 1.8 and was stable at 2.3 off IV fluids prior to discharge. BUN was 33 compared with the baseline of 31 and was stable at discharge. EGFR was 24 and 28, baseline was 26. Free T4 was 0.8. INR 1.0. TSH 0.71. Folate 17.4. Vitamin B12 874. CEA was normal at 4.3. PSA was 4.3 and repeat 3.7. Urinalysis was negative. CRP was 34.1. CPK was 204. Troponin less than 0.06. Magnesium 2.0. Albumin was 3.0 on admission, the next day with rehydration dropped to 2.5, qualifying for severe malnutrition. WBCs were 7.8 on admission with 81% segmented neutrophils, 6.6% lymphocytes and 8.3 monocytes and platelets were 224,000. Hemoglobin was 11.6 with hematocrit 35.0 on admission and stabilized at 10.4 prior to discharge. Baseline hemoglobin is 11.5. MICROBIOLOGY: All cultures of lung material are negative at the time of dictation, culture of a CT-guided lung needle biopsy is pending and not reported. RADIOLOGY: High-resolution CT of the chest without contrast shows a mass in the superior segment of the right lower lobe extending from near the hilum to the pleura with the soft tissue density and ill-defined margins, measuring 5 x 2.3 cm with characteristics concerning for malignancy. Strandy spiculation and nodularity is present around the mass. An occasional small nodule is present in the right upper lobe with several pleural based small nodules. Scarring and atelectasis appears to be present. The thoracic aorta is ectatic in the ascending aorta measures 4.3 cm with the descending aorta measuring 3 cm. No definite hilar adenopathy is identified, although the evaluation is limited with the lack of oral contrast. There is no significant mediastinal adenopathy. Severe coronary artery calcification is present. Degenerative changes noted particularly in the cervical spine with wedging of the inferior endplate of the lower thoracic or upper lumbar vertebral body with approximately 40% loss of height anteriorly. Fatty infiltration of the liver is noted. MRI scan of the brain without contrast showed anticipated amount of cerebral volume loss due to his age with minimal chronic microvascular changes. No evidence for metastatic disease is noted, although the study is somewhat limited for the evaluation of small metastatic implants because of the lack of [facility] [address] [place] [address] DISCHARGE SUMMARY Name: LASHAE GALLAGHER Room #: 222-P DIS IN M.R.#: [id number] Admission: 07/17/18 ������������������ Attend Phys: Satish Lux MD Discharge: 08/03/18 ������������������ Date of : [birth year] Report #: [id number] intravenous contrast material. No vasogenic edema or other secondary signs of metastatic disease were seen. PA and lateral chest x-ray showed mass-like opacity in the right hilar region. Normal vascularity and normal cardiac silhouette. There was some suggestion that there had been some hemorrhage after the bronchoscopy that resolved on a subsequent study done after the needle biopsy. DISCHARGE DIAGNOSES: 1. 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 No definite extension of the tumor beyond the right lower lung is identified, although CT study was limited by the lack of contrast. 2. Leg weakness that caused admission, has improved significantly: Specifically weakness in the hip muscles was identified by the physical therapist. 3. Dehydration on admission and resolved with IV fluids and is now eating and drinking adequately. 4. Severe malnutrition was present on admission with an albumin of 2.5 after rehydration. 5. Chronic obstructive pulmonary disease and asthma that is stable as an outpatient on Symbicort, p.r.n. Ventolin and DuoNeb used in hospital. 6. Obstructive sleep apnea treated with the patient's own continuous positive airway pressure machine that he uses every night. 7. Acute kidney injury with an increase in creatinine, responded to therapy. 8. Chronic kidney disease stage 3-stage 4, stable. 9. Mild type 2 diabetes, managed with diet. 10. Fever was present measured by the ambulance staff at 38 degrees, resolved by the time he got to the Emergency Room. 11. Idiopathic peripheral neuropathy, "he is almost completely numb from the waist down." 12. History of orthostatic hypotension years ago, has resolved over time and he no longer needs midodrine. This has been currently treated by adding salt to his food. 13. Coronary artery disease with a stent placed in February 2014. 14. Bilateral intermediate-grade carotid artery stenosis. 15. 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 On 08/31/2015, nuclear study showed low probability for inducible ischemia. 16. Hyperlipidemia. 17. Prostate cancer treated with radiation therapy in 2007. Subsequent treatments are with Lupron injections from Dr. Austin River on an as needed basis by following PSA elevation. 18. 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 A 0.4 cm in the greatest dimension in the center of the 6 cm tubulovillous adenoma. Most recent known colonoscopy was 02/20/2014. Thirty-two reactive lymph nodes showed no evidence of malignancy. 19. Appendectomy. [address] [address] DISCHARGE SUMMARY Name: KATARZYNAKEKELASHAE Room #: 222-P [facility] IN ..#: [id number] Admission: 07/17/18 ������������������ Attend Phys: Satish Lux MD Discharge: 08/03/18 ������������������ Date of : [birth year] Report #: [id number] 20. Cholecystectomy. 21. 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 22. Other medical problems as mentioned in other reports. 23. Compression fracture L1, stable from 2007. 24. 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 PLAN/ORDERS: [facility] for strengthening. Dr. Tony Khoury is to arrange a PET scan approximately August at the [facility]. He is also to arrange an introductory visit with the radiation therapist. The facility will provide transportation to these doctor's appointments. His length of stay at the nursing home [facility] is expected to be limited since he has already regained much of his strength during this admission, and since the cancer treatment needs to be urgent and timely before it grows and spreads further. MEDICATION ORDERS: 1. Symbicort 160/4.5 two puffs twice daily. 2. Montelukast 10 mg daily. 3. Albuterol sulfate every 4 hours as needed. 4. Tamsulosin 0.4 mg at bedtime. 5. Atorvastatin 20 mg at bedtime. 6. Ipratropium/albuterol 4 times daily by nebulizer. 7. Vitamin D 2000 units daily. 8. Folbic RF tablet with B12 and B6 and levomefolate 1 daily. 9. Resume aspirin 81 mg daily. 10. Salt packets are to be part of a regular diet for him, because the addition of a little bit of table salt controlls his otrhostatic hypotension, 11. DNR is his request. 12. Tramadol 50mg 4 times a day as needed for pain at the biopsy site. 13 Hydrocodone 5/325 1/2 or 1 tablet 4 times a day prn pain at the biopsy site. He no longer needs prednisone or ibuprofen or midodrine. He has been switched off of simvastatin to atorvastatin. At the time of dictation, the report of back pain at the location of his biopsy has been received. Tramadol and hydrocodne prescriptions were hand delivered to the nursing facility. He should have a chest x ray if the pain persists. [facility] [address] [place] [address] DISCHARGE SUMMARY Name: LASHAE GALLAGHER Room #: 222-P DIS IN [facility]#: [id number] Admission: 07/17/18 ������������������ Attend Phys: Satish Lux MD Discharge: 08/03/18 ������������������ Date of : [birth year] Report #: [id number] Additional note, on admission, it was discussed with both the patient and his caregiver that he did not wish any resuscitation efforts, he therefore is "do not resuscitate." ��������������������������������������������� <ELECTRONICALLY SIGNED> ���������������������������������������� By: Satish Lux MD ��������������������������������������������� 08/06/18 [id number] Satish Lux MD /nt
== END 2018-08-03 18:00 | DRG 180 ==
LOC: ER 03:52 → EROBS 06:32 → 4E 06:32 → ENTRNSPT 07-18 10:56 → EDTRNSPTSTS 07-18 11:01 → SICU 07-18 11:16
PROVIDERS: Emergency Medicine; Internal Medicine; ADMIT Internal Medicine
PROC: 0B9F8ZX Drainage of Right Lower Lung Lobe, Via Natural or Artificial Opening Endoscopic, Diagnostic (ICD-10-PCS; principal; 2018-07-26)
PROC: 0BDF8ZX Extraction of Right Lower Lung Lobe, Via Natural or Artificial Opening Endoscopic, Diagnostic (ICD-10-PCS; principal; 2018-07-26)
PROC: 0BBK3ZX Excision of Right Lung, Percutaneous Approach, Diagnostic (ICD-10-PCS; 2018-08-01)
DX: C34.91 Malignant neoplasm of unspecified part of right bronchus or lung (principal); E43 Unspecified severe protein-calorie malnutrition; N17.9 Acute kidney failure, unspecified; N18.4 Chronic kidney disease, stage 4 (severe); R29.6 Repeated falls; J44.9 Chronic obstructive pulmonary disease, unspecified; R91.8 Other nonspecific abnormal finding of lung field; G47.33 Obstructive sleep apnea (adult) (pediatric); I25.10 Atherosclerotic heart disease of native coronary artery without angina pectoris; E78.5 Hyperlipidemia, unspecified; E86.0 Dehydration; E11.42 Type 2 diabetes mellitus with diabetic polyneuropathy; I65.23 Occlusion and stenosis of bilateral carotid arteries; E11.22 Type 2 diabetes mellitus with diabetic chronic kidney disease; E86.9 Volume depletion, unspecified; Z90.49 Acquired absence of other specified parts of digestive tract; Z95.5 Presence of coronary angioplasty implant and graft; Z87.891 Personal history of nicotine dependence; Z85.46 Personal history of malignant neoplasm of prostate; Z82.3 Family history of stroke; Z68.30 Body mass index [BMI] 30.0-30.9, adult; Z79.82 Long term (current) use of aspirin; Z79.899 Other long term (current) drug therapy
CPT/HCPCS: 10084; 15002; 62110; 62900; 70005

== ENCOUNTER 2018-11-25 22:12 | Inpatient (IN) | payer OTHER, BC ==
[~2018-11-25] VITALS: Ht 172.7 cm; Wt 80.4 kg
--- NOTE | ~2018-11-25 | HC ---
[facility] [place] [address] CONSULTATION Name: OLAYINKA GALLAGHER Wayne Room #: 462-P [facility] IN ..#: [id number] Admission: 11/26/18 ������������������ Attend Phys: Satish Lux MD Discharge: ������������������ Date of : [birth year] Report #: [id number] THIS REPORT FOR: //name// CC: Satish Lux DATE OF SERVICE: 11/26/2018 HISTORY OF PRESENT ILLNESS: The patient is an 88-year-old white male who apparently missed a chair while sitting down at home and could not get up off the floor. He was admitted, noted to have some decreased p.o. intake, failure to thrive. He does have terminal lung cancer. Dr. Lux's evaluation; however, indicated terminal lung cancer that did not appear to be affecting his performance status at all at this time. He was noted to have volume depletion and dehydration along with failure to thrive and poor nutritional status. We are seeing him in rehabilitation medicine consultation. PAST MEDICAL HISTORY: Includes a diagnosis of moderately differentiated squamous cell CA of the lung in 07/2018. He apparently had a short detention facility stay and has also been seeing at [facility] with noted mediastinal involvement of his lung cancer. There is graded as a stage 4. He did not undergo any treatment as it was felt that it would be too much for him. He does have a history of COPD, prostate CA, severe coronary artery calcification, and obstructive sleep apnea on CPAP, chronic kidney disease, idiopathic peripheral neuropathy. MEDICATIONS: Please see the full medication listing. SOCIAL HISTORY: Lives in a house alone. No stairs, condominium was modified independent with a front-wheeled walker. Does have a egg sorter 2 times a week. REVIEW OF SYSTEMS: No complaints of chest pain, shortness of breath or abdominal discomfort. PHYSICAL EXAMINATION: GENERAL: An 88-year-old white male, somewhat cantankerous, but pleasant, cooperative with no obvious distress. VITAL SIGNS: Temperature 98.3, pulse 91, respirations 17, blood pressure 136/64. NEUROLOGIC: He is alert, appropriate. Facies appeared symmetric. He currently has a bunch of blankets in place and complains that the room is too cold. He notes with his arthritis. He likes to keep at least 80 degrees. EXTREMITIES: Functional range of motion of the upper and lower extremities. Strength is probably a grade 4-/5. Functionally, he is min assist sit to stand. Gait was min assist 80 feet with a front-wheeled walker. [address] [address] CONSULTATION Name: OLAYINKA GALLAGHER Room #: 462-P [facility] IN [facility]#: [id number] Admission: 11/26/18 ������������������ Attend Phys: Satish Lux MD Discharge: ������������������ Date of : [birth year] Report #: [id number] ASSESSMENT: An 88-year-old white male with the following problem list: 1. Failure to thrive. 2. Decreased nutritional status. 3. Terminal lung cancer, not felt to be affecting his performance status at this time. 4. Volume depletion and dehydration. 5. Prior medical history as noted above. PLAN: The patient is feeling better except that he feels the room is too cold. He desires to have the door closed. I talked with the nursing staff and they will be in contact with the charge nurse. He did have the recent fall, which is noted. The patient is very motivated to return directly back home. He wants to utilize a front-wheeled walker instead of four-wheeled walker. At this point, we would hope that he could go directly home with home health care. We will continue to follow along with you for now as he further medically stabilizes. Thank you for asking us to assist in this patient's care. ��������������������������������������������� ���������������������������������������� By: ��������������������������������������������� [id number] Lon Infante MD /ARGENIS
--- NOTE | ~2018-11-25 | H ---
[facility] [place] [address] HISTORY AND PHYSICAL Name: OLAYINKA GALLAGHER Wayne Room #: 462-P [facility] IN ..#: [id number] Admission: 11/26/18 ������������������ Attend Phys: Satish Lux MD Discharge: ������������������ Date of : [birth year] Report #: [id number] THIS REPORT FOR: //name// CC: Satish Lux DATE OF SERVICE: 11/26/2018 CHIEF COMPLAINT: Unable to get up after a fall at home. HISTORY OF PRESENT ILLNESS: He reports having missed a chair while sitting down at home and being unable to get up off the floor. He has not been eating well for the last week or more, so he has been feeling generalized weakness. He called EMS using his Life Alert when he was unable to get up off the floor. PAST MEDICAL HISTORY: He was admitted here on 07/17/2018 and discharged on 08/03/2018 after being found to have moderately differentiated squamous cell carcinoma of the right lung. He was discharged to residential and went to [facility] where scans indicated that there was mediastinal involvement making his lung cancer stage IV. It was recommended by the specialists that he not be treated for his cancer since he was not a surgical candidate, it would not be curative, and the treatment would be relatively harsh given his fragile status at 88 years old. Since that time, he has continued his usual habits at home, but has been slowly, steadily less active at home, doing less and eating less. OTHER PAST MEDICAL HISTORY: COPD, prostate cancer, ascending thoracic aorta of 4.3 cm in size, severe coronary artery calcification; however, he does not have active coronary artery disease symptoms. Fatty infiltration of the liver. He was severely malnourished on that admission. Obstructive sleep apnea. He treats with his own CPAP machine, which he says he uses nightly. Chronic kidney disease stage 3-4, mild type 2 diabetes, managed with diet; idiopathic peripheral neuropathy, "he is almost completely numb from the waist down." Past history of orthostatic hypotension treated with midodrine, that is no longer needed. He currently treats his orthostatic hypotension by adding salt to his food. Coronary artery disease with a stent placed in February 2014. Bilateral intermediate grade carotid artery stenosis. Distant history of a GI bleed from radiation proctitis. Nuclear study on 08/31/2015 showed low probability for inducible ischemia. Hyperlipidemia. [facility] [address] [place] [address] HISTORY AND PHYSICAL Name: OLAYINKA GALLAGHER Wayne Room #: 462-P [facility] IN ..#: [id number] Admission: 11/26/18 ������������������ Attend Phys: Satish Lux MD Discharge: ������������������ Date of : [birth year]/30/[birth year] Report #: [id number] Laparoscopic ascending hemicolectomy for a large cecal polyp that showed high-grade dysplasia on 08/30/2011; 32 reactive lymph nodes were negative, appendectomy, cholecystectomy. EGD in 2013 showed grade B erosive esophagitis with further details available in his old chart. Compression fracture, L1, stable from 2007. CURRENT MEDICATIONS: Albuterol inhaler, 81 mg aspirin, atorvastatin 20 mg, Folbic RF vitamin tablet, Symbicort 160/4.5 two puffs twice daily and he says that "as long as I take my Symbicort, I do not have any breathing trouble," vitamin D 5000 units, clopidogrel 75 mg daily, ipratropium/albuterol 1 vial by nebulizer 4 times daily, midodrine 5 mg tablets 1/2 tablet t.i.d. is no longer needed, Singulair 10 mg at bedtime, pantoprazole 40 mg before meals in the morning and tamsulosin 0.4 mg at bedtime. PHYSICAL EXAMINATION: GENERAL: Shows an elderly male who is awake and alert and mildly weak. He is strong enough to refuse blood draws and IVs. Later today, he was strong enough to refuse to use a seatbelt or to have a nurse in his room while sitting on the toilet "taking a shit." HEENT: Shows his oral mucosa to be dry. LUNGS: Clear. HEART: His heart tones are normal. ABDOMEN: Soft and nontender. GENITOURINARY: Deferred. EXTREMITIES: There is no edema or gross weakness in his lower extremities. He was able to walk for therapists with a roller walker. This afternoon after sitting on the toilet, he says he was looking for the waste basket and blames the incident on not being able to find the waste basket, he semi-stood up and then became weak and his legs slowly collapsed under him and he slowly lowered himself to the floor. This was witnessed by the occupational therapist that he had chased out of the actual bathroom itself. LABORATORY DATA: Important laboratory data, his creatinine is elevated at 2.4, which is high for him. His BUN is 39, which is actually low for him indicating poor nutritional status. His albumin is low at 2.5 qualifying for severe malnutrition. His hemoglobin is steady at 10.7. WBCs are normal. Platelets are 274,000. Urinalysis shows 1+ blood and 1+ leukocytes, culture is pending. He was slow to urinate for the staff. His bladder scan showed over 400 mL of urine. His nurse inserted a Mata catheter that was inserted easily and the balloon blew up easily; however, no urine at all was returned. She removed the catheter and soon thereafter, he sat on the commode and voided 400 mL of urine. [facility] [address] [address] HISTORY AND PHYSICAL Name: OLAYINKA GALLAGHER Room #: 462-P [facility] IN .R.#: [id number] Admission: 11/26/18 ������������������ Attend Phys: Satish Lux MD Discharge: ������������������ Date of : [birth year]/30/[birth year] Report #: [id number] ASSESSMENT: 1. Failure to thrive. 2. Poor nutritional status. 3. Terminal lung cancer that does not appear to be affecting his performance status at all at this time. 4. Volume depletion and dehydration. PLAN: He is admitted with IV fluids. Therapies are seeing him. agricultural crop farm manager will investigate placement in a SNF. He most likely will wish to stay 1 or 2 extra hospital days and return directly to his own home. He is a no code blue. ��������������������������������������������� ���������������������������������������� By: ��������������������������������������������� 44 21 Satish Lux MD /nt
[2018-11-25 22:14] VITALS: BP 133/57
[2018-11-26] VITALS (7 sets, daily range): BP systolic 104–132; BP diastolic 48–74
--- NOTE | 2018-11-26 01:23 | EKG ---
[place] [address] 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: diego kline : 1930 Requested By: Franky Miller Order Number: [id number] MD: Deon Coto Measurements Intervals [place] Rate: 92 P: 74 [place]: 164 QRS: 55 QRSD: 80 T: 45 QT: 365 QTc: 452 Interpretive Statements Sinus rhythm Multiple ventricular premature complexes Early transition Left atrial enlargement Non specific st/t wave abnormalities Compared to ECG 07/17/2018 04:33:46 no significant changes Electronically Signed On 11-26-2018 1:22:51 CDT by Deon Coto [email or web address] ��������������������������������������������� <ELECTRONICALLY SIGNED> ���������������������������������������� By: Deon Coto MD ��������������������������������������������� 11/26/18 0122 52 [phone] Deon Coto MD /EPI
--- NOTE | 2018-11-26 04:32 | NUR ---
ADMITTED FROM ER UNDER 'S CARE. ADMITTED WITH FALL,WENESS, CURRENT LUNG CANCER. AXOX4. HOPI. RECEIVED A REPORT FROM RN IN ER PT REFUSED TELEMETRY AND IV INSERTION AND WAS NOT ABLE TO PROVIDE MED REC. CONSULTED FOR PHARMACY FOR RED REC AND WILL TRY TO CALL PHARMACY OUTPT FOR MORE INFO. NO S/S ACUTE DISTRESS NOTED OR REPORTED AT THIS TIME. RESTING COMFORTABLY IN BED. WILL CONT TO MONITOR FOR ANY CHANGES IN CONDITION.
[2018-11-26 08:29] LABS: BASOPHILS 0.7 % (0.0-2.0); EOSINOPHILS 3.4 % (0.0-3.0); HEMATOCRIT 31.7 % (42.0-52.0); HEMOGLOBIN 10.7 gm/dL (14.0-18.0); LYMPHOCYTES 12.8 % (24.0-44.0); MCH 29.9 pg (26.0-34.0); MCHC 33.7 g/dL (28.0-37.0); MCV 88.6 fL (80.0-100.0); MONOCYTES 8.8 % (1.0-8.0); PLATELET COUNT 274 thou/uL (150-400); POLYS 74.3 % (36.0-66.0); RBC 3.58 mil/uL (4.50-6.00); RDW 15.6 % (10.5-14.5); WBC 9.4 thou/uL (4.0-11.0)
[2018-11-26 08:45] LABS: ALBUMIN 2.5 g/dL (3.4-5.0); CALCIUM 8.4 mg/dL (8.5-10.1); CREATININE 2.4 mg/dL (0.7-1.3); POTASSIUM 4.2 mmol/L (3.5-5.1); TOTAL BILIRUBIN 0.2 mg/dL (<0.1-1.0); TOTAL PROTEIN 5.8 g/dL (6.4-8.2)
[2018-11-26] MEDS ORDERED: PROTONIX40 M1 PO (12:32)
[2018-11-26] MEDS ORDERED: VITAMIN D5000 UNIT PO (12:33)
[2018-11-26] MEDS ORDERED: LIPITOR 20 MG T20 M1 PO (12:34)
[2018-11-26] MEDS ORDERED: MIDODRINE HCL 55 M1 PO (12:36)
[2018-11-26] MEDS ORDERED: PLAVIX 75 MG TA75 M1 PO (12:37)
[2018-11-26 14:31] LABS: URINE BILIRUBIN NEGATIVE (Negative); URINE BLOOD 1+ (Negative); URINE CLARITY CLEAR; URINE COLOR YELLOW; URINE GLUCOSE-RANDOM* NEGATIVE (Negative); URINE KETONES NEGATIVE (Negative); URINE NITRITE-REFLEX NEGATIVE (Negative); URINE PROTEIN (DIPSTICK) NEGATIVE (Negative); URINE SPECIFIC GRAVITY <= 1.005 (1.005-1.035); URINE UROBILINOGEN 0.2 E.U./dl (0.2-1.0)
[2018-11-26 14:33] LABS: URINE LEUKOCYTES-REFLEX 1+ (Negative)
--- NOTE | 2018-11-26 14:35 | NUR ---
OT ASSISTING PT IN THE BATHROOM PT REFUSED THE GAIT BELT AFTER TOILETING FALL SOCKS ON AND STOOD UP TO GRAB BAR AND FELL WITH ASSISTANCE TO FLOOR. NOTIFIED DR. ELLIS NO ININJURIES SUSTAINED. YELLOW SIGN OUTSIDE DOOR. AND FALL BRACELET ON PT AT THIS TIME. WILL CONTINUE TO ASSESS AND MONITOR. CALL LIGHT WITHIN REACH IF NEEDS ASSISTANCE. PT LOCATED AT NURSES STATION FOR FREQUNT MONITORING AND ASSESSMENT. SEE CHART FOR FALL RISK SHEET FOR FURTHER INFORMATION
[2018-11-26 14:37] LABS: BACTERIA-REFLEX 1-9 Few /HPF (None Seen); SQUAMOUS None Seen /LPF (0-3); URINE RBC 3-10 Few /HPF (0-2)
[2018-11-26 14:38] LABS: CASTS None Seen /LPF (None Seen); CRYSTALS None Seen /LPF (None Seen)
--- NOTE | 2018-11-26 16:39 | NUR ---
PT ADMITTED RELATED TO WEAKNESS/FALL. CM REVIEWED CHART AND SPOKE WITH CARE TEAM. CM MET WITH PT AT BEDSIDE THIS DAY. PT APPEARS TO BE A&O X4. CM ROLE INTRODUCED. PT INDICATED HE LIVES ALONE IN A CONDO WITH 2 STEPS TO ENTER THROUGH THE GARAGE AND NO STEPS HE USES INSIDE. PT INDICATED HIS LEILANI Macias'DENIS IS ALWAYS WITH HIM WHEN HE NAVIGATES STEPS. PT INDICATED HE HAS A FWW AND A 4WW FOR USE AT HOME. PT INDICATED HE HAD HH IN THE PAST BUT CAN'T RECALL PROVIDER. PT INDICATED HE HAD [facility] BUT WOULD PREFER TO RETURN HOME IF ABLE ONCE MEDICALLY STABLE. CM TO FOLLOW INDICATED WITH DC PLANNING.
--- NOTE | 2018-11-27 03:45 | NUR ---
ASSUMED PT CARE AROUND 1900. A&OX4, FORGETFUL. PLEASANT AND COOPERATIVE. DENIES ANY PAIN. VSS. AFEBRILE. PT WAS HAVING URINARY FREQUENCY AND URGENCY EARLIER IN THE NIGHT. HE WOULD ONLY VOID SMALL AMOUNTS AT A TIME. BLADDER SCANNED >700ML. NOTIFIED DR ELLIS. ORDER RECEIVED TO PLACE LEDBETTER CATHETER. PT REQUESTED TO GET UP TO BSC TO VOID INSTEAD OF USING URINAL. PT HAD LESS DIFFICULTY VOIDING ON BSC AND HAD LESS RETENTION WHEN USING THE BSC. CHECKED PVR 2 MORE TIMES AFTER PT VOIDED PER BSC. BOTH TIMES PVR WAS <300ML. LEDBETTER WAS NOT PLACED SINCE IT WAS NO LONGER NEEDED AND PT DID NOT WANT IT PLACED. PT HAS BEEN SLEEPING MOST OF THE NIGHT. RESP EVEN AND UNLABORED. FALL PRECAUTIONS IN PLACE. PROGRESSING SLOWLY TOWARD POC GOALS.
[2018-11-27 04:17] VITALS: BP 122/42
[2018-11-27 07:35] LABS: HEMATOCRIT 30.3 % (42.0-52.0); HEMOGLOBIN 9.8 gm/dL (14.0-18.0); MCH 28.9 pg (26.0-34.0); MCHC 32.3 g/dL (28.0-37.0); MCV 89.4 fL (80.0-100.0); RBC 3.39 mil/uL (4.50-6.00); RDW 15.3 % (10.5-14.5); WBC 8.1 thou/uL (4.0-11.0)
[2018-11-27 08:00] LABS: ALBUMIN 2.4 g/dL (3.4-5.0); CALCIUM 7.8 mg/dL (8.5-10.1); CREATININE 1.9 mg/dL (0.7-1.3); MAGNESIUM 2.1 mg/dL (1.8-2.4); POTASSIUM 4.4 mmol/L (3.5-5.1); TOTAL BILIRUBIN 0.3 mg/dL (<0.1-1.0); TOTAL PROTEIN 5.4 g/dL (6.4-8.2)
[2018-11-27 09:00] VITALS: BP 136/64
--- NOTE | 2018-11-27 13:39 | NUR ---
Received awake on bed. Due medications given as prescribed- able to swallow tablets w/o difficulty. A+Ox4. With hearing aids on. On room air. With NS at 75cc/hr, infusing well at L FA. Able to use bedside commode to pass urine. Falls risk- falls bundle in place. Assisted in ADLs. Pt uses gait belt and walker to ambulate. Pt requested to have his door closed- explained to him that since he had a fall yesterday we have to keep the door opened, complained that he becomes cold quickly, adjusted temperature in his room, brought him warm blanket but pt still requested to have his door closed- charge nurse informed and talked to patient since he's becoming upset- charge nurse talked to patient but still insisted to have his door closed- Charge nurse informed Applications Support Specialist- will talk to patient. Visited by relative today. Pt with consult with Dr Infante, pt seen and assessed today; for PT eval. Vital signs stable.
[2018-11-27 14:51] VITALS: BP 108/51
--- NOTE | 2018-11-27 15:50 | NUR ---
[facility] ASSESSED FOR POSSIBLE ADMISSION. IT WAS DETERMINED THAT PT WOULD BENEFIT FROM SHORT STAY ON 5N. PT AND HIS FRIEND LEILANI ARE AWARE AND AGREEABLE. IT IS ANTICPATED THAT PT WILL DC TO [facility]N TOMORROW Monday11/28/18. CM TO FOLLOW INDICATED WITH DC PLANNING.
[2018-11-27 19:12] VITALS: BP 106/47; BP 129/66
[2018-11-28 04:27] VITALS: BP 146/59
--- NOTE | 2018-11-28 06:42 | NUR ---
Assumed pt care at 1900. Pt A/OX4,VSS.Up with min assist of 1 to use BSC. Pt has been calling approp for help to get up. Denies pain on assessment. Does has a NPC,with WALLS.Resting quietly in bed at this time with no distress.
[2018-11-28 07:22] LABS: HEMATOCRIT 28.3 % (42.0-52.0); HEMOGLOBIN 9.3 gm/dL (14.0-18.0); MCH 29.3 pg (26.0-34.0); MCHC 32.8 g/dL (28.0-37.0); MCV 89.5 fL (80.0-100.0); RBC 3.16 mil/uL (4.50-6.00); RDW 15.5 % (10.5-14.5); WBC 8.1 thou/uL (4.0-11.0)
[2018-11-28 07:32] LABS: CALCIUM 7.8 mg/dL (8.5-10.1); CREATININE 1.8 mg/dL (0.7-1.3); POTASSIUM 4.2 mmol/L (3.5-5.1)
[2018-11-28 07:40] VITALS: BP 133/54
[2018-11-28 14:35] VITALS: BP 114/51
[2018-11-28] MEDS ORDERED: PULMICORT0.5 MG/21 INH (18:14)
[2018-11-28 19:08] VITALS: BP 152/58
[2018-11-28 20:46] VITALS: BP 152/58
--- NOTE | 2018-11-28 20:50 | NUR ---
Assumed pt care this am, pt would call appropriately for help but has reiterated his main concern is having his room warm. Pt would like to have his curtains pulled and door closed to retain heat. Pt is able to get up from Nand use the bedside commode. Pt is able to ambulate with a gai belt. Pt refuses to wear scd's. Orders fro transfer to rehab 5[facility] have been given. Awaiting for bed to be availabe. endorsed to the night nurse. VS stable, poc followed.
--- NOTE | 2018-11-28 21:33 | NUR ---
PATIENT ASSESSED AND IS ALERT X 4. SKIN WARM AND DRY. RESP EVEN AND UNLABORED. UP WITH STAND BY ASSIST IS A FALL RISK. STEADY ON FEET. SCD'S REFUSED. IV SL IN LEFT HAND. IS [place]. UP TO BSC TO BATHROOM. NO CODE . LEDBETTER WAS OUT AND HAS BEEN VOIDING WELL. LUNGS CTA-DISM. NON-PRODUCTIVE COUGH. DISCHARGED AND IS GOING TO 5N. REPORT GIVEN. IS A FALL RISK.
== END 2018-11-28 20:57 | DRG 640 ==
LOC: ER 22:12 → 4W 11-26 02:09 → EROBS 11-26 02:09 → 4W 11-26 02:09
PROVIDERS: ADMIT Internal Medicine
DX: E86.0 Dehydration (principal); E43 Unspecified severe protein-calorie malnutrition; C34.90 Malignant neoplasm of unspecified part of unspecified bronchus or lung; N18.4 Chronic kidney disease, stage 4 (severe); Z68.1 Body mass index [BMI] 19.9 or less, adult; R62.7 Adult failure to thrive; Z60.2 Problems related to living alone; R29.6 Repeated falls; E86.9 Volume depletion, unspecified; G47.33 Obstructive sleep apnea (adult) (pediatric); J44.9 Chronic obstructive pulmonary disease, unspecified; I25.10 Atherosclerotic heart disease of native coronary artery without angina pectoris; E78.5 Hyperlipidemia, unspecified; E11.22 Type 2 diabetes mellitus with diabetic chronic kidney disease; Z66 Do not resuscitate; Z90.49 Acquired absence of other specified parts of digestive tract; Z90.89 Acquired absence of other organs; Z95.5 Presence of coronary angioplasty implant and graft; Z79.82 Long term (current) use of aspirin; Z79.899 Other long term (current) drug therapy; Z87.891 Personal history of nicotine dependence; Z85.46 Personal history of malignant neoplasm of prostate; Z99.81 Dependence on supplemental oxygen
CPT/HCPCS: 10040; 10045

== ENCOUNTER 2018-11-28 11:02 | Inpatient (IN) | payer OTHER, BC ==
[~2018-11-28] VITALS: Ht 172.7 cm; Wt 82.5 kg
--- NOTE | ~2018-11-28 | PLAN ---
[facility] [place] [address] REHAB UNIT PLAN OF CARE Name: OLAYINKA GALLAGHER Room #: 512-P ADM IN M.R.#: [id number] Admission: 11/28/18 ������������������ Attend Phys: Lon Infante MD Discharge: ������������������ Date of : [birth year] Report #: [id number] THIS REPORT FOR: //name// CC: Lon Lux DATE OF SERVICE: 11/30/2018 PROGRESS NOTE/OVERALL PLAN OF CARE SUBJECTIVE: The patient is seen back today in followup. He is in no distress. Last recorded temperature 97.7, pulse 79, respirations 18, blood pressure 121/55. He appears happier overall that the door to his room is closed and his temperature in the room can be kept above 80 degrees. He is not in any distress. Transfers have been standby assistance. Gait min assist 60 feet front-wheeled walker. In occupational therapy, lower body dressing was min assist. ASSESSMENT: 1. Idiopathic peripheral neuropathy. This has been a premorbid condition for him with decreased sensation of his lower extremities. 2. Generalized weakness and debilitation. 3. Dehydration. 4. Urinary retention. He is able to urinate if he gets up to the commode. 5. Recent fall at home as well as on the other pritchett here at the hospital. 6. Lung cancer, stage 3-4 choosing not to treat. PLAN: The overall plan of care is based on the preadmission screen, post-admission physician evaluation and information garnered from therapy assessments. 1. Estimated length of stay is probably at least 7-14 days. 2. Medical prognosis is reasonably good. 3. Anticipated interventions includes the interdisciplinary acute inpatient rehabilitation program. 4. Anticipated functional outcomes would be for the patient to become modified independent with transfers, mobility and ADLs, so that he can hopefully return back to the prior living situation. 5. Discharge destination, he lives in a house alone. He has a furniture assembler and installer. 6. Expected therapy by discipline includes PT, OT 1-1/2 hours per day each 5 days a week throughout the duration of the acute inpatient rehabilitation stay. ��������������������������������������������� ���������������������������������������� By: ��������������������������������������������� 0930 0011 Lon Infante MD /[facility]
--- NOTE | ~2018-11-28 | H ---
[facility] [address] HISTORY AND PHYSICAL Name: OLAYINKA GALLAGHER [place] Room #: 512-P [facility] IN M.R.#: [id number] Admission: 11/28/18 ������������������ Attend Phys: Lon Infante MD Discharge: ������������������ Date of : [birth year]/30/[birth year] Report #: [id number] THIS REPORT FOR: //name// CC: Lon Lux DATE OF SERVICE: 11/29/2018 HISTORY OF PRESENT ILLNESS: The patient is an 88-year-old white male who is originally admitted to [facility] on 11/26/2018. He apparently missed a chair while sitting down at home and could not get up off the floor. He was admitted, noted to have some decreased p.o. intake, failure to thrive. He does have terminal lung cancer. Dr. Lux's evaluation; however, indicated that the terminal lung cancer did not appear to be affecting his performance status at all at this time. He was noted to have volume depletion and dehydration along with failure to thrive and poor nutritional status. We saw him in rehabilitation medicine consultation. He does have medical complexity with generalized debilitation and was amenable to admission for acute in-hospital inpatient rehabilitation to try to further improve his strength and endurance. He can return back to the home setting. 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 He apparently had a short penitentiary facility stay and has also been at [facility] with noted mediastinal involvement of his lung cancer. This was noted to have grade his cancer is stage 4. He did not undergo any treatment as it was felt that it would be too much for him. He does have a history of COPD, prostate CA, severe coronary artery calcification, and obstructive sleep apnea on CPAP, chronic kidney disease, idiopathic peripheral neuropathy. MEDICATIONS: Please see the full medication listing. SOCIAL HISTORY: He lives in a house alone. No stairs condominium was modified independent with a front-wheeled walker. He has a glaciologist 2 times a week. REVIEW OF SYSTEMS: No specific complaints of chest pain, shortness of breath, abdominal discomfort. PHYSICAL EXAMINATION: GENERAL: An 88-year-old white male, rather cantankerous, but pleasant, was seen earlier. No obvious distress. VITAL SIGNS: Temperature 98.5, pulse 78, respirations 20, blood pressure 152/55. HEAD, EYES, EARS, NOSE, AND THROAT: Facies appeared symmetric. Verbalizes quite well. His desires. CHEST: Sounded clear to auscultation. [facility] [address] [place] [address] HISTORY AND PHYSICAL Name: OLAYINKA GALLAGHER Room #: 512-P [facility] IN .R.#: [id number] Admission: 11/28/18 ������������������ Attend Phys: Lon Infante MD Discharge: ������������������ Date of : [birth year]/30/[birth year] Report #: [id number] CARDIOVASCULAR: Regular rate and rhythm. ABDOMEN: Bowel sounds positive, nontender. GENITOURINARY AND RECTAL: Deferred. EXTREMITIES: He has functional range of motion of both upper and lower extremity strength is grade 4-/5. He does have decreased distal sensation at least from the knees distal and he notes with his idiopathic peripheral neuropathy that he is "almost completely numb from the waist down." DTRs were trace to 1. No clonus. Functionally, he has been transferring with min assist with gait min assist 100 feet with the front-wheeled walker. ASSESSMENT: An 88-year-old white male with the following problem list: 1. Idiopathic peripheral neuropathy. He does have decreased distal sensation. 2. Generalized weakness and debilitation. 3. Dehydration. 4. Urinary retention. He is able to urinate if gets up to the commode, otherwise noted to retain up to 700 mL. 5. Recent fall at home as well as a fall here at the hospital on the Acute Med/Surg pritchett prior to transfer to the rehab pritchett. 6. Lung cancer stage 3 or 4 choosing not to treat. PLAN: The patient has been admitted for acute in-hospital inpatient rehabilitation. From a postadmission physician evaluation perspective, there are no relevant changes since the preadmission screening. Please see the above review of prior and current medical and functional conditions and comorbidities. Please see the patient's previous and current functional status. As far as risk of complications, the patient has the above noted comorbidities. Initial plan of care involves the interdisciplinary acute inpatient rehabilitation program with goal of maximizing his functional independence he can hopefully return back to his prior living situation. Prognosis is reasonably good with estimated length of stay probably at least 7-14 days pending progress. Potential barriers would include his multiple medical comorbidities and decreased functional status. The patient meets diagnostic criteria for an acute in-hospital inpatient rehabilitation stay. He meets the medical necessity criteria and we will have his primary care physician continue to follow regarding his medical issues. He does have the tolerance for therapies and has appropriate discharge goals back to the home setting. ADDENDUM: I saw the patient twice on the customer support consultant work prior to coming up to the acute rehab pritchett. He did have a fall on the other floor while he was working with occupational therapy, which is well documented. The patient has made it very clear to me in no uncertain terms that he needs to have the room temperature kept warmer and he likes it over 80 degrees. Upon seeing him on the other floor he always was wrapped in warm blankets and complaining bitterly that the door was kept open because of the hospital fall precautions. I prepared a [facility] [address] [place] [address] HISTORY AND PHYSICAL Name: OLAYINKA GALLAGHER [place] Room #: 512-P [facility] IN ..#: [id number] Admission: 11/28/18 ������������������ Attend Phys: Lon Infante MD Discharge: ������������������ Date of : 04/30/29 Report #: [id number] signed release for him as he specifically desires to have the door closed, so that the room temperature can rise and make him more comfortable with his chronic arthritis. He understands the risks involved with that has agreed to ask for assistance as needed. I have informed the nursing staff a sign will be placed on his door and orders are input in this regard. ��������������������������������������������� ���������������������������������������� By: ��������������������������������������������� 0959 1130 Lon Infante MD /[facility]
[~2018-11-28 11:02] MED LIST changes: +VITAMIN D5000 UNIT PO
[2018-11-28] MEDS ORDERED: PULMICORT0.5 MG/21 INH (18:14)
[2018-11-28 20:35] VITALS: BP 161/79
--- NOTE | 2018-11-29 03:21 | NUR ---
pt arrived to unit approx 2019. pt alert and oriented x4, appropriate and cooperative. pt requesting to keep door shut and therefore room warm. pt has signed consent regarding shut door (see chart). pt denies pain. pt oriented to room, call light etc. pt assist up to bsc to have large bm at hs and up to void several times in night to bsc per pt request. pt appears to be sleeping soundly in between voiding. call light in reach and bed alarm on. will continue to monitor.
[2018-11-29 07:26] LABS: HEMOGLOBIN 9.7 gm/dL (14.0-18.0); MCH 29.1 pg (26.0-34.0); MCHC 32.4 g/dL (28.0-37.0); MCV 89.9 fL (80.0-100.0); RBC 3.34 mil/uL (4.50-6.00); RDW 15.2 % (10.5-14.5); WBC 7.9 thou/uL (4.0-11.0)
[2018-11-29 07:36] LABS: CALCIUM 8.2 mg/dL (8.5-10.1); CREATININE 1.8 mg/dL (0.7-1.3); POTASSIUM 4.3 mmol/L (3.5-5.1)
[2018-11-29 09:35] VITALS: BP 137/43
--- NOTE | 2018-11-29 09:59 | NUR ---
ASSUMED CARE AT 0700. PATIENT IS ALERT AND ORIENTEDX4. PATIENT LUNA'S, PASSENGER INTERLINE CLERK ARE EQUAL . LUNGS ARE COARSE AND DEMINISHED. PATIENT CONTINUES ON RESPIRATORY TX. PATIENT IS HAVING PT/OT EVALS TODAY. PATIENT IS UP TO THE BATHROOM TO VOID AND HAVE BM WITH GAIT BELT AND WALKER. PATIENT GETS SOA WITH EXERTION. PATIENT HAS S.L. IN HIS LEFT HAND. IV SITE WITHOUT REDNESS OR SWELLING. FALL AND SAFETY PROTOCOLS IN PLACE. DENIES ANY PAIN AT THIS TIME. CONTINUES TO PROGRESS SLOWLY TOWARDS D/C GOALS. UP IN THE CHAIR FOR MEALS. WILL CONTINUE TO MONITER.
[2018-11-29 11:30] VITALS: BP 137/43
[2018-11-29 13:50] VITALS: BP 137/43
[2018-11-29 19:40] VITALS: BP 121/55
--- NOTE | 2018-11-30 02:52 | NUR ---
ASSUMED CARE OF PT AT 1915. PT IS A&X4. IS [place] & HAS BILAT MORAES. IS ON ROOM AIR. HOWEVER, EXPERIENCES SOA WITH EXERTION. IS UP WITH 1 ASSIST, GB, WALKER. DENIES PAIN. FALL PRECAUTIONS & HOURLY ROUNDING MAINTAINED. PT INSIST ON HAVING HIS DOOR CLOSED AT ALL TIMES "TO KEEP THE DRAFT FROM COMING IN. I CAN MANAGE MY ARTHERITIS BETTER LIKE THIS". PT MUST HAVE THEMOMETER SET BETWEEN 80 & 85 AT ALL TIMES. WOULD LIKE FOR THE COMPUTER SCREEN TO SHUT OFF AT HS. PT IS STABLE. LABS & VITALS REVIEWED. PT IS IN BED SLEEPING. CALL LIGHT WITHIN REACH. WILL CONTINUE TO MONITOR.
[2018-11-30 07:30] VITALS: BP 123/37
[2018-11-30 09:14] VITALS: BP 134/38
--- NOTE | 2018-11-30 14:32 | NUR ---
ASSUMED CARES AT 0700. PT AWAKE, ORIENTED*4 BUT FORGETFUL AND IMPULSIVE. DENIES PAIN. DBP LOW THIS AM. ALL OTHER VITALS STABLE. PT DENIES DIZZINESS. LS CLEAR/DIMINISHED, INCREASED RESPIRATIONS 22BPM AFTER BREATHING RX AND PT, SATS STABLE. SOB WITH EXERSION. PT ATE 100% OF HIS BREAKFAST BUT REFUSED LUNCH STATING THAT HE'D ORDERED A LARGE DINNER AND PREFERED THAT TO LUNCH. REFUSED TO SHOWER/BATH WITH OT STATING THAT HE WOULD ONLY DO SO AFTER HIS FRIEND BROUGHT HIM CLEAN CLOTHES. PT COMPLETED ALL THERAPIES IN HIS ROOM ( NEEDS TO STAY IN 80 DEGREES ENVIRONMENT). UP WITH 1 MIN ASSIST,GAITBELT AND WALKER. REFUSING GAITBELT AT TIMES. REEDUCATION ON FALL RISK AND SAFETY COMPLETED WITH PT. Q1H VISUAL CHECKS. CALL LIGHT WITHIN REACH. FALL PRECAUTIONS IN PLACE
--- NOTE | 2018-11-30 17:40 | NUR ---
PT ADMITED TO [facility]N ACUTE INPATIENT REHAB RELATED TO FAILURE TO THRIVE; DECREASED NUTRITIONAL STATUS. CM REVIEWED CHART AND SPOKE WITH CARE TEAM. CM MET WITH PT ON ACUTE UNIT. PT RESIDES IN A CONDO ALONE WITH 2 STEPS TO ENTER AND NO STEPS HE USES INSIDE. PT INDICATED HE HAS A FWW AND A 4WW FOR USE AT HOME. PT HAD HH IN THE PAST HAD REFUSED IT UPON LAST DC FROM HOSPITAL. PT [facility] AND DOESN'T WISH TO RETURN. PT'S FRIEND ALEXANDRA HOFFMANN IS HIS DPOA HC AND CHAECK ON PT DAILY HERE AND AT HIS HOME. CARE TEAM HAS INDIATED THAT PT WOULD BENEFIT FROM [facility] UPON DC. CM TO FOLLOW INDICATED WITH DC PLANNING.
[2018-11-30 19:44] VITALS: BP 121/39
--- NOTE | 2018-12-01 01:41 | NUR ---
assumed care at approx 1900 evening 11/30. pt sitting up in recliner at change of shift with legs elevated. pt prefers warm to be very warm and door shut. pt alert and oriented x4, sometimes irritable and complaining about not warm enough and thermostat not working like he would like it to. pt assist up to bathroom with 1 with walker. pt took hs meds with water tolerating well. pt prefers to sleep in bed flat. bed alarm on and call light in reach. will continue to monitor.
--- NOTE | 2018-12-01 07:00 | NUR ---
POST FALL DOCUMENTATION ON 11/29/18 WAS DOCUMENTED IN ERROR. PATIENT IS JUST A HIGH FALL RISK.
--- NOTE | 2018-12-01 07:48 | NUR ---
ASSUMED CARE AT 0700. PATIENT IS ALERT AND ORIENTED X4. PATIENT LUNA'S, CLEAN UP HELPER BANQUET ARE EQUAL. LUNGS ARE CLEAR. ABD IS SOFT WITH BSX4. VOIDS PER URINAL. FALL AND SAFETY PROTOCOLS IN PLACE. DENIES ANY PAIN. CONTINUES TO PROGRESS TOWARDS D/C GOALS. WILL CONTINUE TO MONITER
[2018-12-01 08:40] VITALS: BP 138/42
[2018-12-01 19:15] VITALS: BP 134/37
--- NOTE | 2018-12-02 02:18 | NUR ---
assumed care at approx 1900 evening 12/01. pt sitting up in recliner at change of shift watching tv. pt very irritable and complaining of a yellow line showing up on tv with light is on. pt almost shouting that he cannot watch the ballgame if yellow light present and raising his voice expressing frustration over why it was there. 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 pt seemed to settle down later in evening and now appears to be sleeping soundly in bed with hourly rounding checks. bed alarm on and call light in reach. will continue to monitor.
--- NOTE | 2018-12-02 07:15 | NUR ---
pt slept fairly well in night getting up to void in toilet at least 3 times in the night. pt also likes to brush his teeth every time he gets up to void. pt yelling at resp therapist this am because door was not shut quick enough and complaining of cold air entering room despite temp of 85' in room. pt now back to bed with bed flat per pt request. bed alarm on and call light in reach. report given to day RN.
[2018-12-02 09:13] VITALS: BP 122/50
--- NOTE | 2018-12-02 10:44 | NUR ---
ASSUMED CARES AT 0700. PT AWAKE, ALERT AND ORIENTED*4. DENIES PAIN. VITALS REMAIN STABLE. LS CLEAR/ DIMINISHED, SATS STABLE ON RA, PT RECEIVING BREATHING TREATMENTS Q4H. CONTINUES TO HAVE SOB WITH EXERSION. HS STABLE, MILD BLE EDEMA, EXTREMITIES ELEVATED. PT REMAINS IN ROOM AT ALL TIMES EVEN DURING THERAPY, ROOM TEMPERATURE MAINTAINED AT 80 DEGREES. PT UP WITH 1 MIN ASSIST, GAITBELT AND WALKER AND TOLERATED WELL. Q1H VISUAL CHECKS. CALL LIGHT WITHIN REACH. FALL PRECAUTIONS IN PLACE
[2018-12-02 19:25] VITALS: BP 121/48
--- NOTE | 2018-12-02 23:43 | NUR ---
PT ASSESSMENT COMPLETED AND VSS. MEDS GIVEN ORDERED AND WELL TOLERATED. FALL PRECAUTIONS IN PLACE. UP TO THE BATHROOM WITH ASST/GAIT/WALKER. STEADY. VOIDING MODERATE AMOUNT URINE. PT STATES THAT HE NEEDS TO GO HOME TO HIS CAT JARON. SLEEPING WELL. WILL CONTINUE TO MONITOR FREQUENTLY.
--- NOTE | 2018-12-03 02:45 | NUR ---
PT IMPULSIVE WHEN NEEDING TO GO TO THE BATHROOM. REMINDED PT TO CALL BEFORE TRYING TO GET UP. BED AND CHAIR ALARMS ON. UP WITH GAIT/WALKER/ASST AND YELLOW SOCKS. STEADY AT THIS TIME. SLEEPING. WILL CONTINUE TO MONITOR FREQUENTLY.
[2018-12-03 08:50] VITALS: BP 121/67
--- NOTE | 2018-12-03 12:24 | NUR ---
cm consult on early dc per dr whitfield. cm visited with pt with door shut per pt request " just having some lunch come on"/hong. intro to cm and transition of care, ie hh, list provided choices. " oh this is fine , home care is ok if get to go home, román will be fine"/ hong. referral sent to [facility]. will cont following as needed for dcp
--- NOTE | 2018-12-03 14:18 | NUR ---
ASSUMED CARES AT 0700. PT AWAKE, ALERT AND ORIENTEDX4, FORGETFUL AT TIME. PT WANTS TO GO HOME AND ANXIOUS ABOUT HIS CAT THAT HIS FRIEND ABLE TO FEED HER BUT NOT ABLE TO PAT HER SINCE HIS FRIEND ALLERGIC TO CAT. PT WILL BE D/C HOME WITH HH TOMORROW. DENIES PAIN LONG DOOR CLOSED AND WARM. VITALS REMAIN STABLE. PT HAS HX OF LUNG CANCER, LUNG SOUNDS WHEEZING EARLIER BUT LS CLEAR/ DIMINISHED AFTER BREATHING TX. CONTINUE RECEIVING BREATHING TREATMENTS QID. CONTINUES TO HAVE SOB WITH EXERSION. MILD BLE EDEMA, EXTREMITIES ELEVATED. APPETITE FAIR. ATE 100% DINNER AND REFUSED TO DRINK ENSURE.PT SAID MY APPETITE IS FINE. I HAS BEEN GAINNING. PT UP WITH 1 MIN ASSIST, GAITBELT AND WALKER AND TOLERATED WELL. PT REFUSED SHOWER WITH OT THIS AM AND SAID HE WILL TAKE SHOWER WHEN HE GOES HOME. Q1H VISUAL CHECKS. CALL LIGHT WITHIN REACH. FALL PRECAUTIONS IN PLACE. WILL CONTINUE TO MONITOR.
[2018-12-03 19:55] VITALS: BP 120/46
--- NOTE | 2018-12-04 00:43 | NUR ---
PT ASSESSMENT COMPLETED AND VSS. MEDS GIVEN ORDERED AND WELL TOLERATED. FALL PRECAUTIONS IN PLACE. PT UP WITH ASST/GAIT/WALKER. VERY STEADY AT THIS TIME. STAFF STANDY FOR PT SAFETY BUT PT DID WELL AND DID NOT NEED ASSISTANCE. PT VERY EXCITED ABOUT GOING HOME AND SEEING HIS CAT. DENIES NEEDS. SLEEPING WELL. WILL CONTINUE TO MONITOR FREQUENTLY.
[2018-12-04 07:45] VITALS: BP 141/72
[2018-12-04] MEDS ORDERED: SYMBICORT160 MCG/4. INH (08:42)
[2018-12-04] MEDS ORDERED: DELSYM COU30 MG/5 M1 PO (08:42)
--- NOTE | 2018-12-04 10:02 | NUR ---
DISCHARGE PLANN. ANTICIPATED DISCHARGE PLANNED FOR TODAY PER UNIT CM. PATIENT REQUESTS REFERRAL FAXED TO [facility], FOR HIS HH DISCHARGE NEEDS. HAS USED [facility] IN THE PAST AND WANTS TO USE THEM AGAIN. CALL PLACED TO [facility], SPOKE WITH [facility]. VERIFIED PATIENT HAS BEEN ON SERVICE WITH THEM IN THE PAST, REFERRAL FAXED TO [facility]. [facility] TO REVIEW AND NOTIFY OF ACCEPTANCE. FOLLOWING TO ASSIST WITH DISCHARGE NEEDS.
--- NOTE | 2018-12-04 10:16 | NUR ---
ASSUMED CARES AT 0700. REPORTS SLEPT GOOD. CHEST XRAY RESULT NOTIFIED DR. ELLIS WHO CAME TO SEE PT THIS AM AND WORKED ON PT'S DISCHARGE MEDS. PT WILL D/C HOME WITH HH THIS AFTERNOON. PT AWAKE, ALERT AND ORIENTEDX4, EXCITED TO GO HOME TODAY. VITALS REMAIN STABLE ON RA. LUNG SOUNDS DIMINISHED. CONTINUE RECEIVING BREATHING TREATMENTS QID. CONTINUES TO HAVE SOB WITH EXERSION. MILD BLE EDEMA, EXTREMITIES ELEVATED. APPETITE FAIR. ATE 100% BREAKFAST. PT UP WITH 1 MIN ASSIST, GAITBELT AND WALKER. Q1H VISUAL CHECKS. CALL LIGHT WITHIN REACH. FALL PRECAUTIONS IN PLACE. WILL CONTINUE TO MONITOR.
--- NOTE | 2018-12-04 12:00 | HC ---
[facility] [address] [place] [address] CONSULTATION Name: OLAYINKA GALLAGHER Room #: 512-P [facility] IN M.R.#: [id number] Admission: 11/28/18 ������������������ Attend Phys: Lon Infante MD Discharge: ������������������ Date of : [birth year] Report #: [id number] THIS REPORT FOR: //name// CC: Lon Lux DATE OF SERVICE: 12/02/2018 NEUROBEHAVIORAL STATUS EXAMINATION ATTENDING PHYSICIAN: Lon Infante MD MATERIAL ENGINEER: Francis Siegel, PhD CLINICAL PRESENTATION: The patient is an 88-year-old male admitted to the rehabilitation unit at [facility] for comprehensive inpatient rehabilitation program to improve functional mobility, activities of daily living and self-care and mental status secondary to a fall at his home. He reportedly missed a chair while sitting and could not get up off the floor. The patient carries a diagnosis of lung cancer, stage III or IV. His assessment on admission to the rehabilitation along with the lung cancer diagnosis is an idiopathic peripheral neuropathy, generalized weakness and debilitation, dehydration, urinary retention and the recent fall. The patient also reportedly had a fall in the acute medical floor prior to transfer for inpatient rehabilitation. A complete description of his medical condition and history can be found in his medical record. Neuropsychological consultation was requested to provide assistance in the assessment of cognitive and emotional status and to provide recommendations and services. Prior to this most recent admission, he was living by himself in his own home. The patient has a river guide during the week. He does not drive and has an attendant/friend who provides services as needed for driving. The patient is a college graduate. 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 He is with no children. TECHNIQUES UTILIZED: Clinical interview, review of medical records, staff consultation and behavioral observation, mini mental status exam 2 standard version, clock drawing and verbal fluency assessment (letter and category). EXAMINATION FINDINGS: The patient was alert and cooperative with the assessment. He accurately described the reason for his hospitalization. There is no evidence of aphasia. His thoughts are logical and goal oriented. There is no evidence of thought disorder. He does not report auditory or visual hallucinations. There is no suicidal ideation. His mood is irritable, and he [facility] [address] [place] [address] CONSULTATION Name: OLAYINKA GALLAGHER Wayne Room #: 512-P [facility] IN [facility].#: [id number] Admission: 11/28/18 ������������������ Attend Phys: Lon Infante MD Discharge: ������������������ Date of : [birth year] Report #: [id number] lacks insight into aspects of cognitive functioning. The patient was quite angry and insistent upon discharge as soon as possible. His performance on the MMSE 2 brief version was extremely low with a T score of 28 and percentile rank of 1. He was 3/3 for initial registration, 4/5 for orientation to time and 4/[address]. He was 1/3 for immediate recall of 3 items after a brief time delay and distraction. His performance improved on the standard version of the MMSE 2 to a raw score 26/30, which is a T score of 44 and percentile rank of 27. He was 5/5 for serial sevens, 2/2 for naming, 1/1 for repetition, 3/3 for auditory comprehension. He could read and follow a single command, write a sentence and copy a simple geometric design. Clock drawing was within normal limits. Upper extremity tremor is noted, which interferes with aspects of visual spatial construction. Letter fluency was in the borderline range with a raw score of 13, T score of 36 and percentile and rank of 8. Category fluency was in the average range with a raw score 37, T score of 55 and percentile rank of 69. Overall, total fluency was in the average range with a raw score of 50, T score of 44, percentile rank of 27. The patient is presenting with diminished functioning in letter fluency often indicating higher level executive dysfunction. Brief abstract reasoning test was 8/8 and within normal limits. The patient is presenting with variability in cognition with deficits are primarily in planning and problem solving likely associated with executive dysfunction. He is well oriented, but lacks insight into the extent of assistance that he may require. DIAGNOSTIC IMPRESSION: Mild cognitive disorder, unspecified, with irritability, decreased insight. Adjustment disorder with anxious mood. RECOMMENDATIONS: The patient is quite insistent on returning home as soon as possible. He reports having a cat that he feels needs his attention. The patient does have decreased insight into aspects of his cognitive deficits; however, the extent of the deficits do not appear at the level of a dementia, which would interfere with his ability to adequately care for himself. Decreased insight into the purpose of his rehabilitation program may lead to more difficult compliance. [address] [address] CONSULTATION Name: ELLIOTTOLAYINKA Wayne Room #: 512-P [facility] IN M.R.#: [id number] Admission: 11/28/18 ������������������ Attend Phys: Lon Inafnte MD Discharge: ������������������ Date of : [birth year] Report #: [id number] Thank you very much for allowing me to provide the consultation on this patient. ��������������������������������������������� <ELECTRONICALLY SIGNED> ���������������������������������������� By: Francis Siegel, PhD ��������������������������������������������� 12/04/18 1200 1327 Francis Siegel, PhD /nt
--- NOTE | 2018-12-04 12:20 | NUR ---
team meeting, recommendation, cont with dc today home with [facility] ( pt, ot, and nursing). friend will transport hong home after lunch.
[2018-12-04 12:23] VITALS: BP 141/72
== END 2018-12-04 15:19 | disposition home health service (06) | DRG 74 ==
LOC: ENTRNSPT 12-04 14:10 → EDTRNSPTSTS 12-04 14:12 → CMPTRNSPT 12-04 14:53
PROVIDERS: ADMIT Physical Medicine & Rehabilitation
DX: G90.09 Other idiopathic peripheral autonomic neuropathy (principal); C34.90 Malignant neoplasm of unspecified part of unspecified bronchus or lung; E86.0 Dehydration; R33.9 Retention of urine, unspecified; F43.22 Adjustment disorder with anxiety; G31.84 Mild cognitive impairment of uncertain or unknown etiology; J44.9 Chronic obstructive pulmonary disease, unspecified
CPT/HCPCS: 10112